=== PATIENT | male | born 1940 | race Caucasian/White ===

== ENCOUNTER 2016-09-20 03:06 | Outpatient (CLI) ==
[2016-09-20 09:53] VITALS: BMI 30.7
== END 2016-09-20 03:07 | disposition home or self-care (01) ==
LOC: AMBL 03:06
PROVIDERS: ATTEND Family Medicine
DX: R79.89 Other specified abnormal findings of blood chemistry (principal)

== ENCOUNTER 2016-09-20 03:20 | Inpatient (IN) | payer OTHER ==
[2016-09-20] MEDS ORDERED: SODIUM CHLORIDE 1,000 ML IV STA (03:21)
[2016-09-20 03:45] LABS: BASOPHILS # (AUTO) 0.1 K/uL (0-0.2); BASOPHILS % (AUTO) 0.7 % (0.0-3.0); EOSINOPHILS # (AUTO) 0.5 K/ul (0.0-0.7); EOSINOPHILS % (AUTO) 6.6 % (0.0-7.0); HEMATOCRIT 37.8 % (42.0-52.0); HEMOGLOBIN 12.1 g/dl (14.0-18.0); IMMATURE GRANULOCYTE % (AUTO) 0.3 % (0.0-5.0); LYMPHOCYTES # (AUTO) 2.1 K/uL (0.60-3.4); LYMPHOCYTES % (AUTO) 29.8 (10.0-50.0); MEAN CORPUSCULAR HEMOGLOBIN 30.7 pg (27.0-31.0); MEAN CORPUSCULAR VOLUME 95.9 fl (80.0-94.0); MONOCYTES # (AUTO) 0.5 K/uL (0.4-2.0); MONOCYTES % (AUTO) 6.9 (0-10); NEUTROPHILS % (AUTO) 55.7; PLATELET COUNT 177 10^3/uL (140-440); RED BLOOD COUNT 3.94 10^6/ul (4.70-6.10); WHITE BLOOD COUNT 7.14 K/ul (4.2-10.2)
[2016-09-20 04:06] LABS: PROTHROMBIN TIME 10.6 SEC (9.3-11.0)
[2016-09-20 04:27] LABS: BILIRUBIN,URINE Negative (NEGATIVE); KETONES,URINE Negative (NEGATIVE); LEUKOCYTE ESTERASE ,URINE 2+ (NEGATIVE); NITRITE,URINE Negative (NEGATIVE); PH,URINE 7.5 (5-9); PROTEIN,URINE Trace (NEGATIVE); URINE, BLOOD Negative (NEGATIVE)
[2016-09-20 04:29] LABS: ABG BASE EXCESS 1 (-2.0-2.0); ABG HCO3 24.9 (22.0-26.0); ABG PCO2 36.7 mmHg (35-45); ABG TCO2 26 (22.0-28.0)
[2016-09-20 04:39] LABS: ADD URINE MICROSCOPIC YES; BACTERIA,URINE 4+ (NOT PRESENT)
[2016-09-20 04:51] LABS: ALBUMIN 3.7 g/dL (3.4-5.0); ALBUMIN/GLOBULIN RATIO 1.16; ANION GAP 14.8; BILIRUBIN,TOTAL 0.46 mg/dL (0.00-1.20); BUN/CREATININE RATIO 44.66; CREATININE 1.5 mg/dL (0.60-1.10); POTASSIUM 3.8 mmol/L (3.5-5.1); TOTAL PROTEIN 6.9 g/dL (5.8-8.1)
--- NOTE | 2016-09-20 05:12 | ED.PDOC ---
General ED Provider: Dr. LAYA DENSON-ER Chief Complaint: Non-specific Complaint Stated Complaint: sent from the [facility] for abnormal labs--elevated bun/ creatinine Time Seen by Physician: 03:25 Mode of Arrival: Ambulance Information Source: Nurse Exam Limitations: No limitations Primary Care Provider: LUIS ANEGL KIM Nursing and Triage Documentation Reviewed and Agree: Yes Complaint Exam - Complaint/Exam Onset/Duration: unknown Symptoms Are: Still present Initial Severity: Mild Current Severity: Mild Location of Pain: Reports: None Character: Reports: Sharp Aggravating: Reports: None Alleviating: Reports: None Associated Signs and Symptoms: Denies: Diaphoresis, Back pain, Fever, Hematuria , Dysuria, Constipation, Blood in stool, Rectal pain, Appetite change, Nausea, Vomiting, Penile swelling, Penile discharge, Decreased urine output, Increased urine frequency, Increased thirst, Decreased activity, Lethargy, Scrotal pain, Scrotal swelling, Abdominal Pain Testicular Torsion Risk Factors: Reports: None Surgical Obstruction Risk Factors: Reports: None Abdominal Findings: Present: None Differential Diagnoses: Other Review of Systems - Review Of Systems Constitutional: Reports: No symptoms Eyes: Reports: No symptoms Ears, Nose, Mouth, Throat: Reports: No symptoms Respiratory: Reports: No symptoms Cardiac: Reports: No symptoms GI: Reports: No symptoms : Reports: No symptoms Musculoskeletal: Reports: No symptoms Skin: Reports: No symptoms Neurological: Reports: No symptoms Endocrine: Reports: No symptoms Hematologic/Lymphatic: Reports: No symptoms All Other Systems: Reviewed and Negative Past Medical History - Past Medical History Endocrine: Reports: Dyslipidemia Cardiovascular: Reports: Hypertension Respiratory: Reports: None Hematological: Reports: None Gastrointestinal: Reports: None Genitourinary: Reports: None Neuro/Psych: Reports: TIA, CVA, Seizure, Depression Musculoskeletal: Reports: None Cancer: Reports: Other (skin cancer,stomach cancer) Other Pertinent Past Medical History: 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 - Surgical History General Surgical History: Reports: Cholecystectomy, Other (AAA, left lobectomy( fungal)) - Family History Family History: Reports: Unknown - Social History Smoking Status: Smoker current status unknown Hx Substance Use: No Alcohol Screening: None Lives: With family - Immunizations Tetanus Shot up to Date: (UNKNOWN) Physical Exam - Physical Exam Appearance: Well-appearing, No pain distress, Well-nourished Eyes: TUAN, EOMI, Conjunctiva clear ENT: Ears normal, Nose normal, Oropharynx normal Neck: Supple Respiratory: Airway patent, Breath sounds clear, Breath sounds equal, Respirations nonlabored Cardiovascular: RRR GI/: Soft, Nontender, No masses, Bowel sounds normal, No Organomegaly Musculoskeletal: Normal strength, ROM intact, No edema, No calf tenderness Skin: Warm, Dry, Normal color Neurological: Sensation intact, Motor intact, Reflexes intact, Cranial nerves intact, Alert, Oriented Psychiatric: Affect appropriate, Mood appropriate Interpretation - Radiology Interpretation Radiology Interpretation By: Radiologist Radiology Results: Negative Exam Interpreted: CT Scan Physician Notification - Case Discussed Physician Notified: dr kim Time of Notification: 04:00 (dr kim recommended admission) Critical Care Note - Critical Care Note Total Time (mins): 0 Course - Course Hematology/Chemistry: 09/20/16 03:35 09/20/16 04:15 Orders, Labs, Meds: Lab Review 09/20/16 09/20/16 09/20/16 03:21 03:35 03:40 WBC 7.14 RBC 3.94 L Hgb 12.1 L Hct 37.8 L MCV 95.9 H MCH 30.7 MCHC 32.0 RDW Coeff of Jaime 12.4 Plt Count 177 Immature Gran % (Auto) 0.3 Neut % (Auto) 55.7 Lymph % (Auto) 29.8 [place] % (Auto) 6.9 Eos % (Auto) 6.6 Baso % (Auto) 0.7 Immature Gran # (Auto) 0.0 Neut # 4.0 Lymph # 2.1 [place] # 0.5 Eos # 0.5 Baso # 0.1 PT 10.6 INR 1.03 Puncture Site Lb O2 Saturation 97.0 ABG pH 7.440 ABG pCO2 36.7 ABG pO2 89.0 ABG HCO3 24.9 ABG Total CO2 26 ABG Base Excess 1 Kurt Test + FiO2 % 21.0 Sodium Potassium Chloride Carbon Dioxide Anion Gap BUN Creatinine Estimated GFR (MDRD) BUN/Creatinine Ratio Glucose Calcium Total Bilirubin AST ALT Alkaline Phosphatase Total Protein Albumin Globulin Albumin/Globulin Ratio Urine Color Yellow Urine Clarity Clear Urine pH 7.5 Ur Specific [place] 1.015 Urine Protein Trace Urine Glucose (UA) Negative Urine Ketones Negative Urine Blood Negative Urine Nitrite Negative Urine Bilirubin Negative Urine Urobilinogen 0.2 Ur Leukocyte Esterase 2+ Urine Microscopic WBC 30-50 Ur Squamous Epith Cells Not present Urine Bacteria 4+ 09/20/16 04:15 WBC RBC Hgb Hct MCV MCH MCHC RDW Coeff of Jaime Plt Count Immature Gran % (Auto) Neut % (Auto) Lymph % (Auto) [place] % (Auto) Eos % (Auto) Baso % (Auto) Immature Gran # (Auto) Neut # Lymph # [place] # Eos # Baso # PT INR Puncture Site O2 Saturation ABG pH ABG pCO2 ABG pO2 ABG HCO3 ABG Total CO2 ABG Base Excess Kurt Test FiO2 % Sodium 142 Potassium 3.8 Chloride 109 H Carbon Dioxide 22 L Anion Gap 14.8 BUN 67 H* Creatinine 1.50 H Estimated GFR (MDRD) 46.00 BUN/Creatinine Ratio 44.66 Glucose 100 Calcium 9.0 Total Bilirubin 0.46 AST 15 ALT 16 Alkaline Phosphatase 75 Total Protein 6.9 Albumin 3.7 Globulin 3.2 Albumin/Globulin Ratio 1.16 Urine Color Urine Clarity Urine pH Ur Specific [place] Urine Protein Urine Glucose (UA) Urine Ketones Urine Blood Urine Nitrite Urine Bilirubin Urine Urobilinogen Ur Leukocyte Esterase Urine Microscopic WBC Ur Squamous Epith Cells Urine Bacteria Orders Category Date Time Status ABG DRAW REQUEST Stat CARDIO 09/20/16 03:21 Completed EKG-(ED ONLY) Stat CARDIO 09/20/16 03:21 Completed Bladder Scan [ED BLADDER SCAN] .ONCE EMERGENCY 09/20/16 03:22 Active ED IV/MEDIPORT/POWERPORT .ONCE EMERGENCY 09/20/16 03:21 Active ABG Stat LAB 09/20/16 03:21 Completed CBC W/ AUTO DIFF Stat LAB 09/20/16 03:35 Completed COMPREHENSIVE METABOLIC PANEL Stat LAB 09/20/16 04:15 Completed PT WITH INR Stat LAB 09/20/16 03:35 Completed URINALYSIS C & S IF INDICATED Stat LAB 09/20/16 03:40 Completed URINE CULTURE Stat LAB 09/20/16 03:40 Received 0.9 % Sodium Chloride [Saline Flush] MEDS 09/20/16 03:21 Ordered 1 syr IVF PRN PRN Lidocaine HCl/Pf [Lidocaine 1 % Amp 5 ml (Sutures)] MEDS 09/20/16 05:18 Discontinued 5 ml .ROUTE .STK-MED ONE Sodium Chloride 0.9% [Sodium Chloride] 1,000 ml MEDS 09/20/16 03:21 Active IV 100 mls/hr CT ABDOMEN/PELVIS WO CONTRAST Stat RADS 09/20/16 03:22 Completed Medications Generic Name Dose Route Start Last Admin Trade Name Freq PRN Reason Stop Dose Admin Sodium Chloride 1,000 mls @ 100 mls/hr 09/20/16 03:21 Sodium Chloride IV 09/20/16 13:20 .Q10H STA Sodium Chloride 1 syr 09/20/16 03:21 Saline Flush IVF PRN PRN To flush IV Vital Signs: Temp Pulse Resp BP Pulse Ox 09/20/16 03:24 97.8 F 70 20 158/87 H 96 Departure - Departure Time of Disposition: 05:43 Disposition: ADMITTED INPATIENT Discharge Problem: Volume depletion Urinary tract infection Qualifiers: Urinary tract infection type: site unspecified Hematuria presence: without hematuria Qualifier Code: (N39.0) Urinary tract infection, site not specified Instructions: Urinary Tract Infection in Men (ED) Condition: Stable Pt referred to PMD for follow-up: Yes Allergies/Adverse Reactions: Allergies No Known Allergies Allergy (Verified 09/20/16 04:14) Home Medications: Ambulatory Orders Escitalopram Oxalate 5 mg PO DAILY 02/03/14 Phenobarbital 32.4 gr PO DAILY 02/03/14 Docusate Sodium [Colace] 100 mg PO BEDTIME 06/08/14 Hydrocodone Bit/Acetaminophen [Rarden 10-325] 10 - 325 tab PO Q8H PRN 06/08/14 Lorazepam [Ativan] 0.5 mg PO BID 09/23/14 Ammonium Lactate [Lac-Hydrin Five] 226 gm TP BID 12/31/14 Ferrous Sulfate 325 mg PO BID 12/31/14 Clopidogrel Bisulfate [Plavix] 75 mg PO DAILY #30 tablet 01/01/15 Amlodipine Besylate [Norvasc] 10 mg PO DAILY 08/29/15 Clonidine 0.2 mg [Catapres-Tts 2] 1 patch TD WEEKLY 08/29/15 Metoprolol Succinate [Toprol Xl] 100 mg PO DAILY 08/29/15 Phenytoin Cap [Dilantin] 100 mg PO TID 08/29/15 Acetaminophen [Tylenol Extra Strength] 1,000 mg PO BID 03/25/16 Calcium Carbonate/Vitamin D3 [Oyster Shell Calcium-Vit D Tab] 1 each PO BID 06/09 Hydralazine HCl 50 mg PO TID #90 tablet 03/28/16 Losartan/Hydrochlorothiazide [Hyzaar 100-12.5 Tablet] 1 each PO DAILY #30 tablet 03/28/16 Disposition Discussed With: Patient
[2016-09-20] MEDS ORDERED: LIDOCAINE 1 % AMP 5 ML (SUTURES) ONE (05:18)
--- NOTE | 2016-09-20 05:33 | CT ---
EXAM: CT abdomen pelvis without intravenous contrast 09/20/2016. Sagittal and coronal reformatted images obtained HISTORY: Elevated BUN and creatinine. Question obstruction COMPARISON: 08/29/2015 FINDINGS: Bibasilar atelectasis and/or pneumonia The liver shows no acute abnormality. Gallbladder has been removed. The adrenal glands and kidneys show no acute process. There is no urinary obstruction Anatomic detail degraded by motion artifact. The spleen and pancreas show no acute process. There is no evidence of bowel obstruction. Unremarkable urinary bladder. No free air or free fluid. Atherosclerotic vascular disease. Normal appendix. Aortoiliac stent graft is present. The aneurysm sac appears similar to the prior study. This measu res up to a maximum of approximately 5.2 cm diameter. IMPRESSION: 1. Bibasilar atelectasis and/or pneumonia. 2. Cholecystectomy. 3. No urinary or bowel obstruction and normal appendix. 4. Atherosclerotic vascular disease. 5. Aortoiliac stent graft with stable aneurysm sac.
--- NOTE | 2016-09-20 06:27 | ED.PDOC ---
Procedures - IV/Art Line Insertion Location: Rt upper arm Type of Line: Peripheral IV Invasive Line/IV Catheter Gauge: 24 Number of Attempts: 1 Blood Return Positive: Yes Invasive Line/IV Flushes Without Difficulty: Yes Conscious Sedation - Pre-op Assessment Weight: 220 lb Surgical History: Gallbladder removed, Left lobectomy - Medical History Past Medical History: Hypertension, Cancer, High Lipids, CVA, Seizures, Depression, Arthritis Other History: HEMIPLEGIA AND HEIPARESIS,APHASIA
[2016-09-20 07:16] LABS: BASOPHILS # (AUTO) 0.1 K/uL (0-0.2); BASOPHILS % (AUTO) 0.7 % (0.0-3.0); EOSINOPHILS # (AUTO) 0.5 K/ul (0.0-0.7); EOSINOPHILS % (AUTO) 6.7 % (0.0-7.0); HEMATOCRIT 38.3 % (42.0-52.0); HEMOGLOBIN 12.7 g/dl (14.0-18.0); IMMATURE GRANULOCYTE % (AUTO) 0.4 % (0.0-5.0); LYMPHOCYTES # (AUTO) 2.1 K/uL (0.60-3.4); LYMPHOCYTES % (AUTO) 26.9 (10.0-50.0); MEAN CORPUSCULAR HEMOGLOBIN 30.7 pg (27.0-31.0); MEAN CORPUSCULAR HGB CONC 33.2 (31.8-35.4); MEAN CORPUSCULAR VOLUME 92.5 fl (80.0-94.0); MONOCYTES # (AUTO) 0.6 K/uL (0.4-2.0); MONOCYTES % (AUTO) 7.6 (0-10); NEUTROPHILS # (AUTO) 4.4 K/ul (2.0-6.9); NEUTROPHILS % (AUTO) 57.7; PLATELET COUNT 174 10^3/uL (140-440); RED BLOOD COUNT 4.14 10^6/ul (4.70-6.10); WHITE BLOOD COUNT 7.63 K/ul (4.2-10.2)
[2016-09-20 07:42] LABS: ALBUMIN 3.8 g/dL (3.4-5.0); ALBUMIN/GLOBULIN RATIO 1.15; ANION GAP 14.7; BILIRUBIN,TOTAL 0.55 mg/dL (0.00-1.20); CALCIUM 9.2 mg/dL (8.2-10.2); CREATININE 1.51 mg/dL (0.60-1.10); POTASSIUM 3.7 mmol/L (3.5-5.1); TOTAL PROTEIN 7.1 g/dL (5.8-8.1)
[2016-09-20] MEDS ORDERED: CATAPRES-TTS 2 TD SCH (09:00)
[2016-09-20] MEDS ORDERED: NON-FORMULARY MEDICATION (Ferrous Sulfate [Ferrous Sulfate] 325 MG) PO SCH ×22 (09:00)
[2016-09-20] MEDS ORDERED: PHENOBARBITAL PO SCH (09:00)
[2016-09-20] MEDS ORDERED: NON-FORMULARY MEDICATION (Metoprolol Succinate [Toprol Xl] 100 MG) PO SCH ×22 (09:00)
[2016-09-20] MEDS ORDERED: LOVENOX SUBCUT SCH (09:00)
[2016-09-20] MEDS ORDERED: NON-FORMULARY MEDICATION (Amlodipine Besylate [Norvasc] 10 MG) PO SCH ×22 (09:00)
[2016-09-20 09:03] LABS: BUN/CREATININE RATIO 43.7
[2016-09-20 09:53] VITALS: BMI 30.7
[2016-09-20] MEDS: AZACTAM 1 GM in SODIUM CHLORIDE 50 ML IV SCH ×2 (10:00→21:17)
[2016-09-20] MEDS: AMMONIUM LACTATE TP SCH ×2 (11:48→21:15)
[2016-09-20] MEDS: FERROUS SULFATE PO SCH ×2 (11:58→21:16)
[2016-09-20] MEDS: TOPROL XL PO SCH (11:58)
[2016-09-20] MEDS: LEXAPRO PO SCH (11:58)
[2016-09-20] MEDS: NORVASC PO SCH (11:58)
[2016-09-20] MEDS: PHENOBARBITAL PO SCH (11:59)
[2016-09-20] MEDS: COZAAR PO SCH (11:59)
[2016-09-20] MEDS: PLAVIX PO SCH (11:59)
[2016-09-20] MEDS: CALCIUM 500 + VIT D 200 MG TABLET PO SCH ×2 (11:59→21:16)
[2016-09-20] MEDS: LOVENOX SUBCUT SCH (12:01)
[2016-09-20] MEDS: APRESOLINE PO SCH ×3 (12:20→21:16)
[2016-09-20] MEDS: ATIVAN PO SCH ×2 (12:21→21:16)
[2016-09-20] MEDS: DILANTIN PO SCH ×3 (12:21→21:17)
[2016-09-20] MEDS: SODIUM CHLORIDE 1,000 ML IV SCH ×2 (12:22→21:17)
[2016-09-20] MEDS: NORCO 10-325 PO PRN (21:16)
[2016-09-20] MEDS: COLACE PO SCH (21:16)
[2016-09-21] MEDS: NORCO 10-325 PO PRN ×2 (05:32→20:24)
[2016-09-21 05:40] LABS: BASOPHILS # (AUTO) 0.1 K/uL (0-0.2); BASOPHILS % (AUTO) 0.6 % (0.0-3.0); EOSINOPHILS # (AUTO) 0.4 K/ul (0.0-0.7); HEMATOCRIT 38.3 % (42.0-52.0); HEMOGLOBIN 12.8 g/dl (14.0-18.0); IMMATURE GRANULOCYTE % (AUTO) 0.4 % (0.0-5.0); LYMPHOCYTES % (AUTO) 24.5 (10.0-50.0); MEAN CORPUSCULAR HEMOGLOBIN 30.9 pg (27.0-31.0); MEAN CORPUSCULAR HGB CONC 33.4 (31.8-35.4); MEAN CORPUSCULAR VOLUME 92.5 fl (80.0-94.0); MONOCYTES # (AUTO) 0.6 K/uL (0.4-2.0); MONOCYTES % (AUTO) 7.1 (0-10); NEUTROPHILS # (AUTO) 5.1 K/ul (2.0-6.9); NEUTROPHILS % (AUTO) 62.4; PLATELET COUNT 192 10^3/uL (140-440); RED BLOOD COUNT 4.14 10^6/ul (4.70-6.10); WHITE BLOOD COUNT 8.12 K/ul (4.2-10.2)
[2016-09-21 06:18] LABS: ALBUMIN 3.6 g/dL (3.4-5.0); ALBUMIN/GLOBULIN RATIO 1.09; ANION GAP 13.6; BILIRUBIN,TOTAL 0.68 mg/dL (0.00-1.20); BUN/CREATININE RATIO 35.24; CALCIUM 9.2 mg/dL (8.2-10.2); CREATININE 1.22 mg/dL (0.60-1.10); POTASSIUM 3.6 mmol/L (3.5-5.1); TOTAL PROTEIN 6.9 g/dL (5.8-8.1)
[2016-09-21] MEDS: AZACTAM 1 GM in SODIUM CHLORIDE 50 ML IV SCH ×2 (09:04→20:25)
[2016-09-21] MEDS: AMMONIUM LACTATE TP SCH ×2 (09:22→20:24)
[2016-09-21] MEDS: APRESOLINE PO SCH ×3 (09:23→20:24)
[2016-09-21] MEDS: COZAAR PO SCH (09:23)
[2016-09-21] MEDS: CALCIUM 500 + VIT D 200 MG TABLET PO SCH ×2 (09:23→20:24)
[2016-09-21] MEDS: DILANTIN PO SCH ×3 (09:23→20:24)
[2016-09-21] MEDS: NORVASC PO SCH (09:23)
[2016-09-21] MEDS: ATIVAN PO SCH ×2 (09:23→20:23)
[2016-09-21] MEDS: PLAVIX PO SCH (09:24)
[2016-09-21] MEDS: FERROUS SULFATE PO SCH ×2 (09:24→20:24)
[2016-09-21] MEDS: LEXAPRO PO SCH (09:24)
[2016-09-21] MEDS: LOVENOX SUBCUT SCH (09:25)
[2016-09-21] MEDS: TOPROL XL PO SCH (09:25)
[2016-09-21] MEDS: PHENOBARBITAL PO SCH (09:25)
[2016-09-21] MEDS: SODIUM CHLORIDE 1,000 ML IV SCH ×2 (11:40→22:50)
[2016-09-21] MEDS: COLACE PO SCH (20:24)
[2016-09-22 05:54] LABS: BASOPHILS % (AUTO) 0.5 % (0.0-3.0); EOSINOPHILS # (AUTO) 0.6 K/ul (0.0-0.7); HEMATOCRIT 37.6 % (42.0-52.0); HEMOGLOBIN 12.5 g/dl (14.0-18.0); IMMATURE GRANULOCYTE % (AUTO) 0.7 % (0.0-5.0); LYMPHOCYTES # (AUTO) 2.1 K/uL (0.60-3.4); LYMPHOCYTES % (AUTO) 23.6 (10.0-50.0); MEAN CORPUSCULAR HEMOGLOBIN 30.9 pg (27.0-31.0); MEAN CORPUSCULAR HGB CONC 33.2 (31.8-35.4); MEAN CORPUSCULAR VOLUME 92.8 fl (80.0-94.0); MONOCYTES # (AUTO) 0.7 K/uL (0.4-2.0); MONOCYTES % (AUTO) 8.3 (0-10); NEUTROPHILS # (AUTO) 5.2 K/ul (2.0-6.9); NEUTROPHILS % (AUTO) 59.9; PLATELET COUNT 188 10^3/uL (140-440); RED BLOOD COUNT 4.05 10^6/ul (4.70-6.10); WHITE BLOOD COUNT 8.72 K/ul (4.2-10.2)
[2016-09-22 06:24] LABS: ALBUMIN 3.6 g/dL (3.4-5.0); ALBUMIN/GLOBULIN RATIO 1.13; BILIRUBIN,TOTAL 0.67 mg/dL (0.00-1.20); CALCIUM 9.3 mg/dL (8.2-10.2); TOTAL PROTEIN 6.8 g/dL (5.8-8.1)
[2016-09-22 06:25] LABS: BUN/CREATININE RATIO 28.07; CREATININE 1.14 mg/dL (0.60-1.10)
[2016-09-22] MEDS: PLAVIX PO SCH (08:13)
[2016-09-22] MEDS: TOPROL XL PO SCH (08:13)
[2016-09-22] MEDS: NORVASC PO SCH (08:13)
[2016-09-22] MEDS: FERROUS SULFATE PO SCH ×2 (08:14→20:40)
[2016-09-22] MEDS: APRESOLINE PO SCH ×3 (08:14→20:39)
[2016-09-22] MEDS: PHENOBARBITAL PO SCH (08:14)
[2016-09-22] MEDS: CALCIUM 500 + VIT D 200 MG TABLET PO SCH ×2 (08:14→20:40)
[2016-09-22] MEDS: ATIVAN PO SCH ×2 (08:14→20:40)
[2016-09-22] MEDS: COZAAR PO SCH (08:14)
[2016-09-22] MEDS: LEXAPRO PO SCH (08:15)
[2016-09-22] MEDS: DILANTIN PO SCH ×3 (08:16→20:40)
[2016-09-22] MEDS: LOVENOX SUBCUT SCH (08:20)
[2016-09-22] MEDS: AZACTAM 1 GM in SODIUM CHLORIDE 50 ML IV SCH ×2 (08:21→20:40)
[2016-09-22] MEDS: AMMONIUM LACTATE TP SCH ×2 (08:21→20:39)
--- NOTE | 2016-09-22 10:08 | PCM.PROG ---
Attending Provider: ATTENDING PROVIDER: Dr. LUIS ANGEL MICHAEL DATE OF SERVICE: 09/22/16 SUBJECTIVE: This 76 year old WHITE/ M was hospitalized 09/20/16. The patient is admitted with dehydration, renal azotemia. Condition has improved. He is confused as usual but is alert. Kidney functions are better. REVIEW OF SYSTEMS: CONSTITUTIONAL: No night sweats. No fatigue, malaise, lethargy. No fever or chills. HEENT: Eyes: No visual changes. No eye pain. No eye discharge. ENT: No runny nose. No epistaxis. No sinus pain. No odynophagia. No congestion. RESPIRATORY: No cough, no congestion. No hemoptysis. CARDIOVASCULAR: No angina symptoms. No CHF symptoms. No atypical chest pain for CAD. No palpitations. No shortness of breath. GASTROINTESTINAL: No abdominal pain. No nausea or vomiting. No diarrhea or constipation. No hematemesis. No hematochezia. GENITOURINARY: No urgency. No frequency. No dysuria. No hematuria. No obstructive symptoms. No discharge. No pain. No significant abnormal bleeding. MUSCULOSKELETAL: No musculoskeletal pain; no joint swelling. NEUROLOGICAL: Sleepy, alert and confused. No headache. No neck pain. No syncope. No seizures. No dizziness. PSYCHIATRIC: Not anxious. No depression. No suicidal thoughts. No homicidal thoughts. SKIN: No rash. No lesions. No wounds. ENDOCRINE: No unexplained weight loss. No weight gain. HEMATOLOGIC/LYMPHATIC: No anemia. No purpura. No petechiae. No prolonged or excessive bleeding. No palpable lymph nodes. PHYSICAL EXAMINATION: GENERAL: The patient is sleepy, alert, confused lying in bed in no distress. VITAL SIGNS: Temperature 97.0 F, Pulse 66, Respiratory Rate 18, BP 182/83, Pulse Ox 95% HEENT: Head normocephalic, atraumatic. Eyes: Extraocular muscles are intact. Pupils are equal, round and reactive to light and accommodation. Ears: No lesions. Nose appeared normal. Throat: No exudate or erythema. NECK: Supple. No JVD, no carotid bruit. No lymphadenopathy or thyromegaly. LUNGS: Decreased breath sounds. Clear to auscultation. Percussion note normal. Chest symmetrical. HEART: S1, S2, no S3. No murmurs. No cyanosis or clubbing. No ascites. Pulses: Dorsalis pedis and posterior tibial pulses +1 to +2 both sides. ABDOMEN: Soft. Non-tender. Bowel sounds active. No CVA tenderness. No mass felt. EXTREMITIES: No edema. Full range of motion of all extremities, equal. NEUROLOGIC: No focal deficit. Cranial nerves II through XII are grossly intact. No headache, no double vision or headache. SKIN: Not dry. Intact. Turgor-normal. LYMPHATIC: No palpable lymph nodes/no lymphedema. MUSCULOSKELETAL: Normal joints with no swelling. Muscle tone is normal. LAB REVIEW: 09/22/16 04:50 09/22/16 04:50 09/22/16 04:50: WBC 8.72, RBC 4.05 L, Hgb 12.5 L, Hct 37.6 L, MCV 92.8, MCH 30.9 , MCHC 33.2, RDW Coeff of Jaime 12.4, Plt Count 188, Immature Gran % (Auto) 0.7, Neut % (Auto) 59.9, Lymph % (Auto) 23.6, [place] % (Auto) 8.3, Eos % (Auto) 7.0, Baso % (Auto) 0.5, Immature Gran # (Auto) 0.1, Neut # 5.2, Lymph # 2.1, [place] # 0.7, Eos # 0.6, Baso # 0.0, Sodium 144, Potassium 4.0, Chloride 112 H, Carbon Dioxide 23, Anion Gap 13.0, BUN 32 H, Creatinine 1.14 H, Estimated GFR (MDRD) 62.00, BUN/Creatinine Ratio 28.07, Glucose 95, Calcium 9.3, Total Bilirubin 0.67 , AST 18, ALT 18, Alkaline Phosphatase 91, Total Protein 6.8, Albumin 3.6, Globulin 3.2, Albumin/Globulin Ratio 1.13, Phenytoin 4.58 L ASSESSMENT: 1. Dehydration, resolved. 2. Renal azotemia, resolved. 3. UTI being treated with Azactam and now Levaquin. 4. Dementia. 5. History of CVA. PLAN: 1. Continue Levaquin 250 mg IV daily Plan and coordination of the patient's care discussed in the presence of Saw Boss and nurse. CONDITION: Stable SCRIBED BY: JUAN ANTONIO BAUGH Licensed Loan Officer scribed while in presence of service performed by Dr. LUIS ANGEL MICHAEL on 09/22/16 ([id number])
[2016-09-22] MEDS: LEVAQUIN 250 MG in PREMIX 50 ML D5W 1 BAG IV SCH (10:15)
[2016-09-22] MEDS: SODIUM CHLORIDE 1,000 ML IV SCH (13:15)
--- NOTE | 2016-09-22 13:47 | HP ---
DATE OF SERVICE: 09/20/16 REASON FOR HOSPITALIZATION: Renal Azotemia HISTORY OF PRESENT ILLNESS: The patient is a 76 year white male was seen in the longterm the day prior by the attending physician and he had ordered that lab work. In the middle of the night the stat lab came back after 12 hours. I was called and the nurse has no idea why the stat labs were ordered. The patient was sent out to the emergency room as creatinine was 1.5, BUN 67 and the previous creatinine and BUN were extremely low and in normal range, practically on the upper side. In any case the patient was seen and examined in the ER by ER attending. Creatinine 1.5, BUN 67. The patient's skin was somewhat dry. Skin turgor was poor. As usual the patient is demented. He has gained a lot of weight lately, last few years. The patient has multiple medical problems. REVIEW OF SYSTEMS: CONSTITUTIONAL: No night sweats. No fatigue, malaise, lethargy. No fever or chills. The patient doesn't seem to be in distress, he is quite and not answering any questions. He is alert but confused. HEENT: Eyes: No visual changes. No eye pain. No eye discharge. ENT: No runny nose. No epistaxis. No sinus pain. No sore throat. No odynophagia. No ear pain. No congestion. RESPIRATORY: No cough, no congestion. No hemoptysis. CARDIOVASCULAR: No angina symptoms. No CHF symptoms. No atypical chest pain for CAD. No palpitations. No shortness of breath. No PND. No orthopnea. GASTROINTESTINAL: No abdominal pain. No nausea or vomiting. No diarrhea or constipation. No hematemesis. No hematochezia. GENITOURINARY: No urgency. No frequency. No dysuria. No hematuria. No obstructive symptoms. No discharge. No pain. No significant abnormal bleeding. MUSCULOSKELETAL: No musculoskeletal pain. No joint swelling. No arthritis. NEUROLOGICAL: No headache. No neck pain. No syncope. No seizures. No dizziness. PSYCHIATRIC: Not anxious. No depression. No suicidal thoughts. No homicidal thoughts. SKIN: No rash. No lesions. No wounds. ENDOCRINE: No unexplained weight loss. No weight gain. HEMATOLOGIC/LYMPHATIC: No anemia. No purpura. No petechiae. No prolonged or excessive bleeding. No palpable lymph nodes. PERSONAL/FAMILY/SOCIAL HISTORY: The patient is and lives in the longterm. No alcohol use. Current smoker. 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 VITAL SIGNS: Temperature 97.8, pulse 70, respiratory rate 20, blood pressure 158/87 and pulse 96%. HEENT: Head normocephalic, atraumatic. Eyes: Extraocular muscles are intact. Pupils are equal, round and reactive to light and accommodation. Ears: No lesions. Nose appeared normal. Throat: No exudate or erythema. Mucosa Membrane dry. Face symmetrical. Sclera not icteric. NECK: Supple. No JVD, no carotid bruit. No lymphadenopathy or thyromegaly. LUNGS: Decreased breath sounds but Clear to auscultation. Percussion note normal. Chest symmetrical. HEART: PMI not palpable on auscultation. S1, S2, no S3. No murmurs. No cyanosis or clubbing. No ascites. Pulses: Dorsalis pedis and posterior tibial pulses +1 to +2 both sides. ABDOMEN: Soft. Nontender. Bowel sounds active. No CVA tenderness. No mass felt. EXTREMITIES: No edema. Full range of motion of all extremities, equal. Contractures of lower extremities noted. NEUROLOGIC: No focal deficit. Cranial nerves II through XII are grossly intact. No headache, no double vision or headache. SKIN: Dry. Intact. Turgor - normal. LYMPHATIC: No palpable lymph nodes/no lymphedema. MUSCULOSKELETAL: Normal joints with no swelling. Muscle tone is normal. LABS: Creatinine 1.5, BUN 67, potassium 3.8, U/A 2+ leukocyte esterase and 4+ bacteria. ABG pO 2 89, pCO2 36, pH 7.44 with 97% saturation. Hgb 12. hct 37, WBC 7,100 normal differential. It is to be noted that patient's U/A is abnormal but he is asymptomatic there is no need for treatment at present time. ASSESSMENT: 1. Renal azotemia with dehydration 2. Hypertension 3. CVA 4. TIA 5. Peripheral arterial disease 6. Cholecystectomy 7. Hypertension 8. Generalized osteoarthritis 9. Seizure disorder PLAN: 1. IV fluids 2. Monitor CBC and CMP 3. Telemetry 4. EKG 5. Monitor for fluid overload 6. Will do Dilantin and Phenobarbital level CONDITION: Stable. TIME SPENT: More than 70 minutes. MTDD
[2016-09-22] MEDS: NORCO 10-325 PO PRN (20:40)
[2016-09-22] MEDS: COLACE PO SCH (20:40)
[2016-09-22 23:14] VITALS: BP 195/93; TEMP 97.8
[2016-09-23] MEDS: SODIUM CHLORIDE 1,000 ML IV SCH (03:30)
[2016-09-23] MEDS: NORCO 10-325 PO PRN (04:53)
[2016-09-23] MEDS ORDERED: PHENOBARBITAL PO SCH (09:00)
[2016-09-23] MEDS ORDERED: CATAPRES-TTS 2 TD SCH (09:00)
[2016-09-23] MEDS: AZACTAM 1 GM in SODIUM CHLORIDE 50 ML IV SCH (09:03)
[2016-09-23] MEDS: LOVENOX SUBCUT SCH (09:09)
[2016-09-23] MEDS: COZAAR PO SCH (09:11)
[2016-09-23] MEDS: LEXAPRO PO SCH (09:11)
[2016-09-23] MEDS: APRESOLINE PO SCH ×2 (09:12→14:43)
[2016-09-23] MEDS: DILANTIN PO SCH ×2 (09:14→14:45)
[2016-09-23] MEDS: ATIVAN PO SCH (09:14)
[2016-09-23] MEDS: NORVASC PO SCH (09:14)
[2016-09-23] MEDS: TOPROL XL PO SCH (09:14)
[2016-09-23] MEDS: FERROUS SULFATE PO SCH (09:15)
[2016-09-23] MEDS: PLAVIX PO SCH (09:15)
[2016-09-23] MEDS: AMMONIUM LACTATE TP SCH (09:15)
[2016-09-23] MEDS: CALCIUM 500 + VIT D 200 MG TABLET PO SCH (09:15)
--- NOTE | 2016-09-23 10:03 | PCM.PROG ---
Attending Provider: ATTENDING PROVIDER: Dr. LUIS ANGEL MICHAEL DATE OF SERVICE: 09/23/16 SUBJECTIVE: This 76 year old WHITE/ M was hospitalized 09/20/16. The patient is hospitalized with dehydration and renal azotemia. The patient has UTI, E. coli , sensitive to Levaquin. Condition has improved. Kidney functions much better. Creatinine 1.1 with BUN of 32. The patient was agitated last night. REVIEW OF SYSTEMS: CONSTITUTIONAL: No night sweats. No fatigue, malaise, lethargy. No fever or chills. HEENT: Eyes: No visual changes. No eye pain. No eye discharge. ENT: No runny nose. No epistaxis. No sinus pain. No odynophagia. No congestion. RESPIRATORY: No cough, no congestion. No hemoptysis. CARDIOVASCULAR: No angina symptoms. No CHF symptoms. No atypical chest pain for CAD. No palpitations. No shortness of breath. GASTROINTESTINAL: No abdominal pain. No nausea or vomiting. No diarrhea or constipation. No hematemesis. No hematochezia. GENITOURINARY: No urgency. No frequency. No dysuria. No hematuria. No obstructive symptoms. No discharge. No pain. No significant abnormal bleeding. MUSCULOSKELETAL: No musculoskeletal pain; no joint swelling. NEUROLOGICAL: No headache. No neck pain. No syncope. No seizures. No dizziness. PSYCHIATRIC: Not anxious. No depression. No suicidal thoughts. No homicidal thoughts. SKIN: No rash. No lesions. No wounds. ENDOCRINE: No unexplained weight loss. No weight gain. HEMATOLOGIC/LYMPHATIC: No anemia. No purpura. No petechiae. No prolonged or excessive bleeding. No palpable lymph nodes. PHYSICAL EXAMINATION: GENERAL: The patient is alert but confused lying in bed in no distress. VITAL SIGNS: Temperature 97.8 F, Pulse 70, Respiratory Rate 24, BP 195/93, Pulse Ox 96% HEENT: Head normocephalic, atraumatic. Eyes: Extraocular muscles are intact. Pupils are equal, round and reactive to light and accommodation. Ears: No lesions. Nose appeared normal. Throat: No exudate or erythema. NECK: Supple. No JVD, no carotid bruit. No lymphadenopathy or thyromegaly. LUNGS: Decreased breath sounds. Clear to auscultation. Percussion note normal. Chest symmetrical. HEART: S1, S2, no S3. No murmurs. No cyanosis or clubbing. No ascites. Pulses: Dorsalis pedis and posterior tibial pulses +1 to +2 both sides. ABDOMEN: Soft. Non-tender. Bowel sounds active. No CVA tenderness. No mass felt. EXTREMITIES: No edema. Full range of motion of all extremities, equal. NEUROLOGIC: No focal deficit. Cranial nerves II through XII are grossly intact. No headache, no double vision or headache. SKIN: Not dry. Intact. Turgor-normal. LYMPHATIC: No palpable lymph nodes/no lymphedema. MUSCULOSKELETAL: Normal joints with no swelling. Muscle tone is normal. LAB REVIEW: 09/22/16 04:50 09/22/16 04:50 ASSESSMENT: 1. UTI resolving 2. Renal azotemia resolved 3. Hypertension PLAN: Hydralazine is increased to 75 t.i.d. Blood pressure is still high, will continue to monitor blood pressure so we may have to work with medication changes. Dilantin level is normal. Plan and coordination of the patient's care discussed in the presence of Buzzle Buffer and nurse. CONDITION: Stable SCRIBED BY: JUAN ANTONIO BAUGH Instrumentation Technologist scribed while in presence of service performed by Dr. LUIS ANGEL MICHAEL on 09/23/16 ([id number])
[2016-09-23] MEDS: LEVAQUIN 250 MG in PREMIX 50 ML D5W 1 BAG IV SCH (10:09)
--- NOTE | 2016-09-23 12:30 | CM.DICTOOL ---
ADMISSION: 09/20/16 05:58 DISCHARGE: September 23, 2016 DATE OF SERVICE: 09/23/16 FINAL DIAGNOSIS Renal Azotemia Dehydration UTI, enterobacter cloacae complex Hypertension CVA with Left Hemiparesis and Aphasia Peripheral Arterial Disease Seizure Disorder Dementia Anemia BPH Basal Cell Carcinoma, 1988 Left Lung Lobectomy, fungal infection 1988 Cholecystectomy Generalized Osteoarthritis Aortoiliac Stent Graft LAST VITALS Temp Pulse Resp BP Pulse Ox 97.8 F 70 24 195/93 H 96 09/22/16 22:00 09/22/16 22:00 09/22/16 22:00 09/22/16 22:00 09/22/16 22:00 ACTIVE HOME MEDICATIONS Acetaminophen/Hydrocodone Bitart ([place] 10-325) 1 tab PO Q8H PRN PRN Reason: MODERATE PAIN Last Admin: 09/23/16 04:53 Dose: 1 tab Amlodipine Besylate (Norvasc) 10 mg PO DAILY [facility] Last Admin: 09/23/16 09:14 Dose: 10 mg Calcium/Vitamin D (Calcium 500 + Vit D 200 Mg Tablet) 1 each PO BID [facility] Last Admin: 09/23/16 09:15 Dose: 1 each Clonidine HCl (Catapres-Tts 2) 1 patch TD WEEKLY [facility] Last Admin: 09/23/16 09:07 Dose: 1 patch Clopidogrel Bisulfate (Plavix) 75 mg PO DAILY [facility] Last Admin: 09/23/16 09:15 Dose: 75 mg Docusate Sodium (Colace) 100 mg PO BEDTIME [facility] Last Admin: 09/22/16 20:40 Dose: 100 mg Escitalopram Oxalate (Lexapro) 5 mg PO DAILY [facility] Last Admin: 09/23/16 09:11 Dose: 5 mg Ferrous Sulfate (Ferrous Sulfate) 324 mg PO BID [facility] Last Admin: 09/23/16 09:15 Dose: 324 mg Hydralazine HCl (Apresoline) 75 mg PO TID [facility] Last Admin: 09/23/16 09:12 Dose: 75 mg Lorazepam (Ativan) 0.5 mg PO BID [facility] Last Admin: 09/23/16 09:14 Dose: 0.5 mg Losartan Potassium (Cozaar) 100 mg PO DAILY [facility] Last Admin: 09/23/16 09:11 Dose: 100 mg Metoprolol Succinate (Toprol Xl) 100 mg PO DAILY [facility] Last Admin: 09/23/16 09:14 Dose: 100 mg Non-Formulary Medication (Ammonium Lactate [Lac-Hydrin Five]) 226 gm TP BID [facility] Last Admin: 09/23/16 09:15 Dose: Not Given Phenobarbital (Phenobarbital) 32.4 mg PO DAILY [facility] Last Admin: 09/23/16 09:23 Dose: 32.4 mg Phenytoin Sodium (Dilantin) 100 mg PO TID [facility] Last Admin: 09/23/16 09:14 Dose: 100 mg ALLERGIES No Known Allergies Allergy (Verified 09/20/16 04:14) NEW PRESCRIPTIONS: Levaquin 500 mg daily for 5 days. Start tomorrow. SMOKING: No smoking DISEASE SPECIFIC EDUCATION: Not Applicable LAB REVIEW: 09/22/16 04:50 09/22/16 04:50 09/22/16 04:50: Phenobarbital 6 PLAN: Discharge to [facility] Diet: Heart Healthy. Encourage liquids Dietitian to consult for optimal nutrtional intakes Activity: up to chair 1-2 times daily Turn every 2 hours Incontinent care every 2 hours and prn Decubitus precautions Vital Signs daily for one week then weekly CBC, CMP in one week, then monthly Dilantin and Phenobarb levels every [address] Hawley to see on longterm rounds in 7-10 days. Mr. Mathur is alert to person. He has left hemiparesis and aphasia from a previous CVA. He is dependent on the nursing staff for bathing, repositioning and transfers. He requires assistance of 2-3 staff members for transfers. He is incontinent of urine and stool. His color is pale. Skin is dry and flaky from the face to the feet. A skin tear is noted to the right elbow. Meal intakes have been fair with intakes of 10-75% noted. The liquid intake has been good. Chapo De La Fuente MD
--- NOTE | 2016-09-25 10:43 | DS ---
DATE OF SERVICE: 09/23/16 FINAL DIAGNOSIS: 1. Renal Azotemia 2. Dehydration 3. UTI, enterobacter cloacae complex 4. Hypertension 5. CVA with Left Hemiparesis and Aphasia 6. Peripheral arterial disease 7. Seizure disorder 8. Dementia 9. Anemia 10.BPH 11.Basal Cell carcinoma, 1988 12.Left lung lobectomy, fungal infection 1988 13.Cholecystectomy 14.Generalized osteoarthritis 15.Aortoiliac Stent Graft LAST VITALS: Temperature 98.8, pulse 70, respiratory rate 24, blood pressure 195/93 and pulse ox 96%. DISCHARGE INSTRUCTIONS: Discharge to [facility]. Vital signs daily for one week then weekly. CBC, CMP in one week then monthly. Dilantin and Phenobarb levels every [address] Hawley to see on [facility]iary rounds in 7-10 dyas. MEDICATIONS AT DISCHARGE: [place] 10-325mg PO Q 8 hour PRN Norvasc 10mg PO daily Calcium 500+Vit D200mg one tach PO twice a day Catapres-Tts 2 one patch TD weekly Plavix 75mg PO daily Colace 100mg PO bedtime Lexapro 5mg PO daily Ferrous Sulfate 324mg PO twice a day Apresoline 75mg PO three times a day Ativan 0.5mg PO twice a day Cozaar 100mg Po daily Toprol XL 100mg PO daily Lac-Hydrin Five 226gram TP twice a day Phenobarbital 32.4mg Po daily Dilantin 100mg PO three times a day ALLERGIES: No known allergies allergies. NEW PRESCRIPTIONS: Levaquin 500mg daily for five days start tomorrow DIET INSTRUCTIONS: Heart Healthy. Encourage liquids. Dietitian to consult for optimal nutritional intakes ACTIVITY: Up to chair 1-2 times daily. Turn every two hours. Incontinent care every 2 hours and PRN. Decubitus precautions. SMOKING: No smoking DISEASE SPECIFIC EDUCATION: N/A HOSPITAL COURSE: The patient is a 76 year old white male was hospitalized with dehydrated, dementia, renal azotemia and the patient was also noted to have urinary tract infection, e-coli. The patient has been treated with Azactam, Levaquin. At the time of discharge he was put on Levaquin. Also the patient was given slow IV fluids. He was watched for fluid overload which he didn't have at the time of discharge. The patient's creatinine is 1.1, bun 32. The patient's BUN was more than 60 with creatinine 1.5 or more. The patient's condition at the time of discharge stable. His appetite has definitely has improved. His hydration status improved. His skin turgor also improved. TIME SPENT: More than 60 minutes. MTDD
--- NOTE | 2016-09-25 10:44 | PN ---
09/20/16: Level 5 09/21/16: Intermediate 09/22/16: Intermediate 09/23/16: D as in discharge MTDD
--- NOTE | 2016-10-01 15:50 | PN ---
DATE OF SERVICE: 09/21/16 SUBJECTIVE:. The patient is a 76 year old white male hospitalized with dehydration, renal azotemia. The patient's condition has steadily improved. His mental status seems to have improved and he is more alert, still confused and appetite seems to have improved. REVIEW OF SYSTEMS: CONSTITUTIONAL: No night sweats. No fatigue, malaise, lethargy. No fever or chills. HEENT: Eyes: No visual changes. No eye pain. No eye discharge. ENT: No runny nose. No epistaxis. No sinus pain. No sore throat. No odynophagia. No congestion. RESPIRATORY: No cough, no congestion. No hemoptysis. CARDIOVASCULAR: No angina symptoms. No CHF symptoms. No atypical chest pain for CAD. No palpitations. No shortness of breath. GASTROINTESTINAL: No abdominal pain. No nausea or vomiting. No diarrhea or constipation. No hematemesis. No hematochezia. GENITOURINARY: No urgency. No frequency. No dysuria. No hematuria. No obstructive symptoms. No discharge. No pain. No significant abnormal bleeding. MUSCULOSKELETAL: No musculoskeletal pain; no joint swelling. NEUROLOGICAL: No headache. No neck pain. No syncope. No seizures. No dizziness. PSYCHIATRIC: Not anxious. No depression. No suicidal thoughts. No homicidal thoughts. SKIN: No rash. No lesions. No wounds. ENDOCRINE: No unexplained weight loss. No weight gain. HEMATOLOGIC/LYMPHATIC: No anemia. No purpura. No petechiae. No prolonged or excessive bleeding. No palpable lymph nodes. PHYSICAL EXAMINATION: GENERAL: The patient is confused and alert. VITAL SIGNS: Temperature 98, pulse 64, respiratory rate 20, blood pressure 190 /89 and pulse ox 96%. HEENT: Head normocephalic, atraumatic. Eyes: Extraocular muscles are intact. Pupils are equal, round and reactive to light and accommodation. Ears: No lesions. Nose appeared normal. Throat: No exudate or erythema. NECK: Supple. No JVD, no carotid bruit. No lymphadenopathy or thyromegaly. LUNGS: Decreased breath sounds but clear to auscultation. Percussion note normal. Chest symmetrical. HEART: S1, S2, no S3. No murmurs. No cyanosis or clubbing. No ascites. Pulses: Dorsalis pedis and posterior tibial pulses +1 to +2 both sides. ABDOMEN: Soft. Nontender. Bowel sounds active. No CVA tenderness. No mass felt. EXTREMITIES: No edema. Full range of motion of all extremities, equal. NEUROLOGIC: No focal deficit. Cranial nerves II through XII are grossly intact. No headache, no double vision or headache. SKIN: Not dry. Intact. Turgor - normal. He looks somewhat pale but that is his appearance. LYMPHATIC: No palpable lymph nodes/no lymphedema. MUSCULOSKELETAL: Normal joints with no swelling. Muscle tone is normal. LABS: Hgb 12.8, hct 38, WBC 8,100 normal differential, creatinine 1.2, BUN 43, potassium 3.6. ASSESSMENT: 1. Renal azotemia with dehydration 2. Hypertension 3. CVA 4. TIA 5. Peripheral arterial disease 6. Cholecystectomy 7. Hypertension 8. Generalized osteoarthritis 9. Seizure disorder PLAN: 1. Will do Dilantin and Phenobarb level 2. Increase the Hydralazine to 75mg three times a day because of hypertension which seems to be persistent. CONDITION: Stable TIME SPENT: More than 30 minutes. Plan and coordination of the patient's care discussed in the presence of nurse. MARLY
== END 2016-09-23 15:49 | DRG 948 ==
LOC: ED 03:20 → MEDSURG A 05:58
PROVIDERS: ADMIT Internal Medicine; ATTEND Internal Medicine
DX: R79.89 Other specified abnormal findings of blood chemistry (principal); N39.0 Urinary tract infection, site not specified; I69.354 Hemiplegia and hemiparesis following cerebral infarction affecting left non-dominant side; E86.9 Volume depletion, unspecified; B96.89 Other specified bacterial agents as the cause of diseases classified elsewhere; I10 Essential (primary) hypertension; R41.0 Disorientation, unspecified; I69.320 Aphasia following cerebral infarction; I73.9 Peripheral vascular disease, unspecified; G40.909 Epilepsy, unspecified, not intractable, without status epilepticus; F03.90 Unspecified dementia, unspecified severity, without behavioral disturbance, psychotic disturbance, mood disturbance, and anxiety; D64.9 Anemia, unspecified; N40.0 Benign prostatic hyperplasia without lower urinary tract symptoms; Z16.11 Resistance to penicillins; Z79.02 Long term (current) use of antithrombotics/antiplatelets; Z79.899 Other long term (current) drug therapy
CPT/HCPCS: 36415; 80053; 80184; 80185; 81001; 82803; 85025; 85610; 87086; 87186; 93005; 93010; 96360; 96361; 99284

== ENCOUNTER 2018-08-02 17:48 | Inpatient (IN) ==
--- NOTE | 2018-08-02 18:39 | ED.PDOC ---
General ED Provider: Dr. MAGDALENA COELHO Chief Complaint: Abnormal Labs Stated Complaint: ABNORMAL OUT PT LABS MAINLY DECLINE IN RENAL FUNCTION. PT DENIED BUN 77 AND CARE ADMINISTRATIVE TECH OF 3.6. Time Seen by Physician: 18:00 Mode of Arrival: Ambulance Information Source: Patient, Snf Exam Limitations: No limitations Primary Care Provider: LUIS ANGEL MICHAEL Nursing and Triage Documentation Reviewed and Agree: Yes Does patient meet sepsis criteria?: No System Inflammatory Response Syndrome: Not Applicable Sepsis Protocol: For patient's 13 years and over: Temp is 96.8 and below OR 101 and greater Pulse >90 BPM Resp >20/minute Acutely Altered Mental Status Are patient's symptoms suggestive of a new infection, such as: -Pneumonia -Skin, Soft Tissue -Endocarditis -UTI -Bone, Joint Infection -Implantable Device -Acute Abdominal Infection -Wound Infection -Meningitis -Blood Stream Catheter Infection -Unknown Miscellaneous Complaint Exam - Complex/Multi-System Complaint/Exam Onset/Duration: ABNORMAL RENAL FUNCTION Symptoms Are: Still present Location of Pain: ABDOMEN MILD Pain Radiates to: NO Character: DULL Aggravating: NONE Associated Signs and Symptoms: Reports: Abdominal pain. Denies: Decreased responsiveness, Confusion, Agitation, Dizziness, Weakness, Syncope, Headache, Short of air, Cough, Wheezing, Hemoptysis, Chest pain, Palpitations, Edema, Nausea, Vomiting, Diarrhea, Back pain, Dysuria, Hematemesis, Melena, Decreased oral intake, Fever, Diaphoresis, Immunocompromised, Anticoagulation Therapy, Recent medication changes, Indwelling paramedical aide, Prior MRSA, Prior VRE, Recent trauma, Remote trauma Recent Echo/LV Function: No Respiratory Distress: None JVD Present: No Tachypnea Present: No Stridor Present: No Abdominal Findings: Present: Normal findings Glascow Coma Scale (see protocol): 15 Focal Weakness: Present: None Focal Sensory Loss: Present: None Gait: Unable Gag Reflex Present: Yes Babinski Sign: Negative Right, Negative Left Skin Findings: Present: Normal findings Joint Swelling Present: No In-Dwelling Device Present: No Review of Systems - Review Of Systems Constitutional: Reports: No symptoms Eyes: Reports: No symptoms Ears, Nose, Mouth, Throat: Reports: No symptoms Respiratory: Reports: No symptoms Cardiac: Reports: No symptoms GI: Reports: Abdominal pain : Reports: No symptoms Musculoskeletal: Reports: No symptoms Skin: Reports: No symptoms Neurological: Reports: No symptoms Endocrine: Reports: No symptoms Hematologic/Lymphatic: Reports: No symptoms All Other Systems: Reviewed and Negative Past Medical History - Past Medical History Endocrine: Reports: Dyslipidemia Cardiovascular: Reports: Hypertension Respiratory: Reports: None Hematological: Reports: None Gastrointestinal: Reports: None Genitourinary: Reports: None Neuro/Psych: Reports: TIA, CVA, Seizure, Depression Musculoskeletal: Reports: None Cancer: Reports: Other (skin cancer,stomach cancer) Other Pertinent Past Medical History: 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 - Surgical History General Surgical History: Reports: Cholecystectomy, Other (AAA, left lobectomy( fungal)) - Family History Family History: Reports: Unknown - Social History Smoking Status: Current every day smoker, Smoker current status unknown Hx Substance Use: No Alcohol Screening: None Physical Exam - Physical Exam Appearance: Well-appearing, No pain distress, Well-nourished Eyes: TUAN, EOMI, Conjunctiva clear ENT: Dry mucosa Respiratory: Airway patent, Breath sounds clear, Breath sounds equal, Respirations nonlabored Cardiovascular: RRR, Pulses normal, No rub, No murmur GI/: Soft, Nontender, No masses, Bowel sounds normal, No Organomegaly Musculoskeletal: Normal strength, ROM intact, No edema, No calf tenderness Skin: Warm, Dry, Normal color Neurological: Sensation intact, Motor intact, Reflexes intact, Cranial nerves intact, Alert, Oriented Psychiatric: Affect appropriate, Mood appropriate Re-Evaluation - Re-Evaluation Time of Re-Evaluation: 19:41 (LABS AT [facility] DOES NOT SUPPORT RENAL FAILURE ) Status: Improved Vital Signs Stable: Yes Pain Level: 0 Appearance: NAD Lungs: Clear Skin: Warm and Dry Neuro: Alert and Oriented X3 CV: RRR Physician Notification - Case Discussed Physician Notified: PMD Time of Notification: 19:42 ([facility] OBS REPEAT LABS ) Admit To: Observation Critical Care Note - Critical Care Note Total Time (mins): 0 Course - Course Hematology/Chemistry: 08/02/18 18:52 08/02/18 18:52 Orders, Labs, Meds: Lab Review 08/02/18 08/02/18 08/02/18 18:41 18:52 18:52 WBC 11.91 H RBC 4.39 L Hgb 12.8 L Hct 39.5 L MCV 90.0 MCH 29.2 MCHC 32.4 RDW Coeff of Jaime 13.7 Plt Count 198 Immature Gran % (Auto) 0.3 Neut % (Auto) 78.8 Lymph % (Auto) 11.1 Evangeline % (Auto) 6.0 Eos % (Auto) 3.6 Baso % (Auto) 0.2 Immature Gran # (Auto) 0.0 Neut # (Auto) 9.4 H Lymph # (Auto) 1.3 Evangeline # (Auto) 0.7 Eos # (Auto) 0.4 Baso # (Auto) 0.0 PT 9.9 INR 0.99 APTT 27.1 Sodium Potassium Chloride Carbon Dioxide Anion Gap BUN Creatinine Estimated GFR (MDRD) BUN/Creatinine Ratio Glucose Calcium Total Bilirubin AST ALT Alkaline Phosphatase Total Creatine Kinase Troponin I Total Protein Albumin Globulin Albumin/Globulin Ratio Urine Color Yellow Urine Clarity Cloudy Urine pH 8.0 Ur Specific [place] 1.020 Urine Protein 1+ Urine Glucose (UA) Negative Urine Ketones Negative Urine Blood Negative Urine Nitrite Positive Urine Bilirubin Negative Urine Urobilinogen 0.2 Ur Leukocyte Esterase 1+ Urine Microscopic WBC 10-20 Ur Squamous Epith Cells Not present Urine Bacteria 4+ 08/02/18 18:52 WBC RBC Hgb Hct MCV MCH MCHC RDW Coeff of Jaime Plt Count Immature Gran % (Auto) Neut % (Auto) Lymph % (Auto) Evangeline % (Auto) Eos % (Auto) Baso % (Auto) Immature Gran # (Auto) Neut # (Auto) Lymph # (Auto) Evangeline # (Auto) Eos # (Auto) Baso # (Auto) PT INR APTT Sodium 141.1 Potassium 3.93 Chloride 104.8 Carbon Dioxide 27.3 Anion Gap 12.93 BUN 26.5 H Creatinine 0.94 Estimated GFR (MDRD) 78.00 BUN/Creatinine Ratio 28.19 Glucose 102.9 Calcium 9.62 Total Bilirubin 0.63 AST 40.8 ALT 17.0 Alkaline Phosphatase 122.2 H Total Creatine Kinase 33.7 L Troponin I < 0.012 Total Protein 7.96 Albumin 4.42 Globulin 3.54 Albumin/Globulin Ratio 1.24 Urine Color Urine Clarity Urine pH Ur Specific [place] Urine Protein Urine Glucose (UA) Urine Ketones Urine Blood Urine Nitrite Urine Bilirubin Urine Urobilinogen Ur Leukocyte Esterase Urine Microscopic WBC Ur Squamous Epith Cells Urine Bacteria Orders Category Date Time Status EKG-(ED ONLY) Stat CARDIO 08/02/18 18:14 Completed CBC W/ AUTO DIFF Stat LAB 08/02/18 18:52 Completed COMPREHENSIVE METABOLIC PANEL Stat LAB 08/02/18 18:52 Completed CREATINE KINASE Stat LAB 08/02/18 18:52 Completed PARTIAL THROMBOPLASTIN TIME Stat LAB 08/02/18 18:52 Completed PT WITH INR Stat LAB 08/02/18 18:52 Completed TROPONIN I Stat LAB 08/02/18 18:52 Completed URINALYSIS C & S IF INDICATED Stat LAB 08/02/18 18:41 Completed URINE CULTURE Stat LAB 08/02/18 18:[address] ABDOMEN/PELVIS WO CONTRAST Stat RADS 08/02/18 18:14 Taken Vital Signs: Temp Pulse Resp BP Pulse Ox 08/02/18 17:48 98.1 F 70 24 154/80 H 93 L Departure - Departure Time of Disposition: 19:43 Disposition: PLACED OBSERVATION Discharge Problem: Weakness, Anemia, UTI (urinary tract infection) Condition: Good Pt referred to PMD for follow-up: Yes IPMP verified?: No Additional Instructions: Please call your Family Physician as soon as possible to schedule a follow-up appointment. Allergies/Adverse Reactions: Allergies No Known Allergies Allergy (Verified 09/20/16 04:14) Home Medications: Ambulatory Orders Escitalopram Oxalate 10 mg PO DAILY 02/03/14 Phenobarbital 32.4 gr PO DAILY 02/03/14 Docusate Sodium [Colace] 100 mg PO BID 06/08/14 Lorazepam [Ativan] 0.25 mg PO DAILY 09/23/14 Ferrous Sulfate 325 mg PO BID 12/31/14 Clopidogrel Bisulfate [Plavix] 75 mg PO DAILY #30 tablet 01/01/15 Amlodipine Besylate [Norvasc] 10 mg PO DAILY 08/29/15 Metoprolol Succinate [Toprol Xl] 100 mg PO DAILY 08/29/15 Acetaminophen 650 mg PO Q4H PRN 08/02/18 Ammonium Lactate [Lac-Hydrin Five] 226 gm TP BID 08/02/18 Calcium Carbonate/Vitamin D3 [[place] Calcium-Vit D Tab] 1 each PO BID 04/12 Clonidine 0.3 mg [Catapres TTS-3] 1 patch TD WEEKLY 08/02/18 Hydralazine HCl 100 mg PO QID 08/02/18 Hydrocodone Bit/Acetaminophen [[place] 5-325] 1 tab PO BID 08/02/18 Ipratropium/Albuterol Neb [Duoneb] 1 vial NEB BID PRN 08/02/18 Losartan Potassium 100 mg PO DAILY 08/02/18 Magnesium Citrate [Citrate of Magnesia] 15 ml PO DAILY 08/02/18 Phenytoin [Dilantin-125] 125 mg PO Q12H 08/02/18 Disposition Discussed With: Patient, Family
[2018-08-02] MEDS ORDERED: TYLENOL PO PRN (19:43)
[2018-08-02] MEDS ORDERED: DUONEB NEB PRN (19:43)
--- NOTE | 2018-08-02 19:51 | CT ---
EXAM: CT of the abdomen and pelvis without contrast. HISTORY: Pain. PROCEDURE: Contiguous axial CT images of the abdomen and pelvis without contrast with coronal and sa gittal reformats. FINDINGS: Comparison made with CT of 09/20/2016. There is motion artifact which limits the exam. Th e heart is enlarged. There is a small pericardial effusion measuring up to 0.6 cm. There is bibasil ar consolidation. The liver is normal in appearance. The gallbladder is surgically absent. The valiente creas, spleen and adrenal glands are normal in appearance. There are vascular calcifications in the kidneys. There is atrophy in the lower pole of the left kidney. There is increased aneurysmal dilat ation of the infrarenal abdominal aorta which measures 5.7 x 5.8 cm in diameter (previously 5.4 x 5.4 cm) with no evidence of aneurysm leak. There is an endograft stent in stable position extending in to the bilateral common iliac arteries. There are atherosclerotic calcifications in the major arteri es of the abdomen and pelvis. The appendix is normal in appearance. There is fecal stasis in the co abdelrahman. There is fecal impaction in the rectum which measures 7.1 x 8.3 cm on a single axial image. No free fluid or free air in the abdomen or pelvis. The bladder is adequately filled and normal in marva earance. The prostate gland is enlarged measuring 5.5 cm. There are degenerative changes in the spin e. Impression: Fecal impaction in the rectum as described. Interval increase in size of abdominal aortic aneurysm as described with no evidence of aneurysm leak . Endograft stent in stable position. Left renal atrophy. Enlarged prostate gland. Cholecystectomy. Minimal bibasilar atelectasis and/or pneumonia. Small pericardial effusion as described. Cardiomegaly.
[2018-08-02] MEDS ORDERED: DILANTIN PO SCH (20:00)
[2018-08-02] MEDS ORDERED: AMMONIUM LACTATE TP SCH (21:00)
[2018-08-02] MEDS ORDERED: NON-FORMULARY MEDICATION (Ferrous Sulfate [Ferrous Sulfate] 325 MG) PO SCH (21:00)
[2018-08-02] MEDS ORDERED: ROCEPHIN ONE (22:12)
[2018-08-02] MEDS ORDERED: FERROUS SULFATE ONE (22:12)
[2018-08-02] MEDS: NORCO 5-325 PO SCH (22:22)
[2018-08-02] MEDS: COLACE PO SCH (22:22)
[2018-08-02] MEDS: APRESOLINE PO SCH (22:23)
[2018-08-02] MEDS: ROCEPHIN 1 GM in SODIUM CHLORIDE 50 ML IV SCH (22:24)
[2018-08-02] MEDS: SODIUM CHLORIDE 1,000 ML IV SCH (22:46)
[2018-08-03 00:57] VITALS: BMI 26.6
--- NOTE | 2018-08-03 08:48 | PCM.PROG ---
Attending Provider: ATTENDING PROVIDER: Dr. LUIS ANGEL MICHAEL DATE OF SERVICE: 08/03/18 SUBJECTIVE: This 78 year old WHITE/ M was hospitalized 08/02/18 from the [facility] because abnormal labs and dehydration. The patient also has UTI. REVIEW OF SYSTEMS: CONSTITUTIONAL: No night sweats. No fatigue, malaise, lethargy. No fever or chills. The patient is unable to answer questions. HEENT: Eyes: No visual changes. No eye pain. No eye discharge. ENT: No runny nose. No epistaxis. No sinus pain. No odynophagia. No congestion. RESPIRATORY: No cough, no congestion. No hemoptysis. No shortness of breath. CARDIOVASCULAR: No angina symptoms. No CHF symptoms. No atypical chest pain for CAD. No palpitations. No orthopnea.. GASTROINTESTINAL: No abdominal pain. No nausea or vomiting. No diarrhea or constipation. No hematemesis. No hematochezia. GENITOURINARY: No urgency. No frequency. No dysuria. No hematuria. No obstructive symptoms. No discharge. No pain. No significant abnormal bleeding. MUSCULOSKELETAL: No musculoskeletal pain; no joint swelling. NEUROLOGICAL: Awake, alert, oriented to time, place and person. No headache. No neck pain. No syncope. No seizures. No dizziness. PSYCHIATRIC: Not anxious. No depression. No suicidal thoughts. No homicidal thoughts. SKIN: No rash. No lesions. No wounds. ENDOCRINE: No unexplained weight loss. No weight gain. HEMATOLOGIC/LYMPHATIC: No anemia. No purpura. No petechiae. No prolonged or excessive bleeding. No palpable lymph nodes. PHYSICAL EXAMINATION: GENERAL: The patient is awake, alert and oriented, lying in bed in no distress. VITAL SIGNS: Temperature 98.2 F, Pulse 66, Respiratory Rate 22, BP 162/83, Pulse Ox 93% HEENT: Head normocephalic, atraumatic. Eyes: Extraocular muscles are intact. Pupils are equal, round and reactive to light and accommodation. Ears: No lesions. Nose appeared normal. Throat: No exudate or erythema. NECK: Supple. No JVD, no carotid bruit. No lymphadenopathy or thyromegaly. LUNGS: Decreased breath sounds but clear to auscultation. Percussion note normal. Chest symmetrical. HEART: S1, S2, no S3. No murmurs. No cyanosis or clubbing. No ascites. Pulses: Dorsalis pedis and posterior tibial pulses +1 to +2 both sides. ABDOMEN: Soft. Non-tender. Bowel sounds active. No CVA tenderness. No mass felt. EXTREMITIES: No edema. Full range of motion of all extremities, equal. Right hemiplegia with contracture of right upper extremity. NEUROLOGIC: No focal deficit. Cranial nerves II through XII are grossly intact. No headache, no double vision or headache. SKIN: Warm and dry. Intact. Turgor-normal. LYMPHATIC: No palpable lymph nodes/no lymphedema. MUSCULOSKELETAL: Normal joints with no swelling. Muscle tone is normal. LAB REVIEW: 08/03/18 04:50 08/03/18 04:50 08/03/18 04:50: Sodium 141.9, Potassium 3.82, Chloride 108.1 H, Carbon Dioxide 24.4, Anion Gap 13.22, BUN 24.5 H, Creatinine 1.01, Estimated GFR (MDRD) 71.00, BUN/Creatinine Ratio 24.25, Glucose 117.8 H, Calcium 9.02, Total Bilirubin 0.63 , AST 22.4, ALT 13.7, Alkaline Phosphatase 99.6, Total Protein 6.64, Albumin 3.65, Globulin 2.99, Albumin/Globulin Ratio 1.22 08/03/18 04:50: WBC 9.41, RBC 3.74 L, Hgb 10.9 L, Hct 33.4 L D, MCV 89.3, MCH 29.1, MCHC 32.6, RDW Coeff of Jaime 13.7, Plt Count 171, Immature Gran % (Auto) 0.3, Neut % (Auto) 70.8, Lymph % (Auto) 18.0, [place] % (Auto) 8.3, Eos % (Auto) 2.4, Baso % (Auto) 0.2, Immature Gran # (Auto) 0.0, Neut # (Auto) 6.7, Lymph # ( Auto) 1.7, [place] # (Auto) 0.8, Eos # (Auto) 0.2, Baso # (Auto) 0.0 08/02/18 18:52: Sodium 141.1, Potassium 3.93, Chloride 104.8, Carbon Dioxide 27.3, Anion Gap 12.93, BUN 26.5 H, Creatinine 0.94, Estimated GFR (MDRD) 78.00, BUN/Creatinine Ratio 28.19, Glucose 102.9, Calcium 9.62, Total Bilirubin 0.63, AST 40.8, ALT 17.0, Alkaline Phosphatase 122.2 H, Total Creatine Kinase 33.7 L, Troponin I < 0.012, Total Protein 7.96, Albumin 4.42, Globulin 3.54, Albumin/ Globulin Ratio 1.24 08/02/18 18:52: PT 9.9, INR 0.99, APTT 27.1 08/02/18 18:52: WBC 11.91 H, RBC 4.39 L, Hgb 12.8 L, Hct 39.5 L, MCV 90.0, MCH 29.2, MCHC 32.4, RDW Coeff of Jaime 13.7, Plt Count 198, Immature Gran % (Auto) 0.3, Neut % (Auto) 78.8, Lymph % (Auto) 11.1, [place] % (Auto) 6.0, Eos % (Auto) 3.6, Baso % (Auto) 0.2, Immature Gran # (Auto) 0.0, Neut # (Auto) 9.4 H, Lymph # (Auto) 1.3, [place] # (Auto) 0.7, Eos # (Auto) 0.4, Baso # (Auto) 0.0 08/02/18 18:41: Urine Color Yellow, Urine Clarity Cloudy, Urine pH 8.0, Ur Specific [place] 1.020, Urine Protein 1+, Urine Glucose (UA) Negative, Urine Ketones Negative, Urine Blood Negative, Urine Nitrite Positive, Urine Bilirubin Negative, Urine Urobilinogen 0.2, Ur Leukocyte Esterase 1+, Urine Microscopic WBC 10-20, Ur Squamous Epith Cells Not present, Urine Bacteria 4+ ASSESSMENT: Please see below. 1. Dehydration 2. UTI 3. Dementia 4. Status post CVA with right hemiplegia 5. Hypertension 6. Anemia 7. Fecal impaction in rectum. PLAN: 1. Continue IV Rocephin 2. IV fluids 3. Blood pressure borderline, no room for any medication for hypertension. Watch blood pressure. Plan and coordination of the patient's care discussed in the presence of Store Assistant and nurse. SCRIBED BY: MARVIN GARZA Wardrobe Coordinator scribed while in presence of service performed by Dr. LUIS ANGEL MICHAEL on 08/03/18 ([id number])
[2018-08-03] MEDS ORDERED: NON-FORMULARY MEDICATION (Amlodipine Besylate [Norvasc] 10 MG) PO SCH (09:00)
[2018-08-03] MEDS ORDERED: CITRATE OF MAGNESIA PO SCH (09:00)
[2018-08-03] MEDS ORDERED: PHENOBARBITAL PO SCH (09:00)
[2018-08-03] MEDS ORDERED: NON-FORMULARY MEDICATION (Metoprolol Succinate [Toprol Xl] 100 MG) PO SCH (09:00)
[2018-08-03] MEDS: ROCEPHIN 1 GM in SODIUM CHLORIDE 50 ML IV SCH (09:44)
[2018-08-03] MEDS: AMMONIUM LACTATE TP SCH ×2 (09:45→21:13)
[2018-08-03] MEDS: CITRATE OF MAGNESIA PO SCH (09:45)
--- NOTE | 2018-08-03 09:45 | PN ---
DATE OF SERVICE: 08/02/18 SUBJECTIVE: The patient was seen and examined in his room, Room 115. The patient was sent from the [facility] because of weakness and change in the mental status with possibility of dehydration and UTI. The patient is unable to give any history. He has right hemiplegia with contracture of the right upper extremity and lower extremity. He has aphasia. REVIEW OF SYSTEMS: CONSTITUTIONAL: No night sweats. No fatigue, malaise, lethargy. No fever or chills. HEENT: Eyes: No visual changes. No eye pain. No eye discharge. ENT: No runny nose. No epistaxis. No sinus pain. No sore throat. No odynophagia. No congestion. RESPIRATORY: No cough, no congestion. No hemoptysis. No shortness of breath. CARDIOVASCULAR: No angina symptoms. No CHF symptoms. No atypical chest pain for CAD. No palpitations. No PND. No orthopnea. GASTROINTESTINAL: No abdominal pain. No nausea or vomiting. No diarrhea or constipation. No hematemesis. No hematochezia. GENITOURINARY: No urgency. No frequency. No dysuria. No hematuria. No obstructive symptoms. No discharge. No pain. No significant abnormal bleeding. MUSCULOSKELETAL: No musculoskeletal pain; no joint swelling. NEUROLOGICAL: No headache. No neck pain. No syncope. No seizures. No dizziness. PSYCHIATRIC: Not anxious. No depression. No suicidal thoughts. No homicidal thoughts. SKIN: No rash. No lesions. No wounds. ENDOCRINE: No unexplained weight loss. No weight gain. HEMATOLOGIC/LYMPHATIC: No anemia. No purpura. No petechiae. No prolonged or excessive bleeding. No palpable lymph nodes. PHYSICAL EXAMINATION: VITAL SIGNS: Temperature 98, pulse 70, respiratory rate 24, blood pressure 150/ 80 and pulse ox 93%. HEENT: Head normocephalic, atraumatic. Eyes: Extraocular muscles are intact. Pupils are equal, round and reactive to light and accommodation. Ears: No lesions. Nose appeared normal. Throat: No exudate or erythema. NECK: Supple. No JVD, no carotid bruit. No lymphadenopathy or thyromegaly. LUNGS: Decreased breath sounds but clear to auscultation. Percussion note normal. Chest symmetrical. HEART: S1, S2, no S3. No murmurs. No cyanosis or clubbing. No ascites. Pulses: Dorsalis pedis and posterior tibial pulses +1 to +2 bilaterally. ABDOMEN: Soft. Nontender. Bowel sounds active. No CVA tenderness. No mass felt. EXTREMITIES: No edema. Full range of motion of all extremities, equal. NEUROLOGIC: No focal deficit. Cranial nerves II through XII are grossly intact. No headache, no double vision or headache. SKIN: Dry. Intact. Turgor - normal. LYMPHATIC: No palpable lymph nodes/no lymphedema. MUSCULOSKELETAL: Normal joints with no swelling. Muscle tone is normal. LABS: Hgb 12.8, hct 39, WBC 11,900 normal differential, creatinine 0.9, BUN 26, potassium 3.9. ASSESSMENT: 1. Dehydration 2. Weakness 3. Change in the mental status from possibility of UTI 4. Status post CVA with right hemiparesis 5. Dementia 6. Aphagia 7. Right hemiplegia with contractures PLAN: 1. IV Rocephin 1 dose 2. IV fluids 3. Monitor CBC and CMP TIME SPENT: More than 30 minutes. Plan and coordination of the patient's care discussed in the presence of nurse. MARLY
[2018-08-03] MEDS: ATIVAN PO SCH (09:46)
[2018-08-03] MEDS: DILANTIN PO SCH ×2 (09:46→21:01)
[2018-08-03] MEDS: APRESOLINE PO SCH ×4 (09:47→21:01)
[2018-08-03] MEDS: PHENOBARBITAL PO SCH (09:47)
[2018-08-03] MEDS: PLAVIX PO SCH (09:47)
[2018-08-03] MEDS: LEXAPRO PO SCH (09:47)
[2018-08-03] MEDS: NORCO 5-325 PO SCH ×2 (09:47→21:01)
[2018-08-03] MEDS: COLACE PO SCH ×2 (09:47→21:01)
[2018-08-03] MEDS: NORVASC PO SCH (09:47)
[2018-08-03] MEDS: COZAAR PO SCH (09:48)
[2018-08-03] MEDS: FERROUS SULFATE PO SCH ×2 (09:48→21:01)
[2018-08-03] MEDS: TOPROL XL PO SCH (09:50)
[2018-08-03] MEDS: SODIUM CHLORIDE 1,000 ML IV SCH (12:15)
[2018-08-04] MEDS: SODIUM CHLORIDE 1,000 ML IV SCH ×2 (00:36→15:42)
[2018-08-04] MEDS ORDERED: CITRATE OF MAGNESIA PO STA (08:35)
[2018-08-04] MEDS: DILANTIN PO SCH ×2 (08:37→20:38)
[2018-08-04] MEDS: ATIVAN PO SCH (08:38)
[2018-08-04] MEDS: LEXAPRO PO SCH (08:38)
[2018-08-04] MEDS: TOPROL XL PO SCH (08:39)
[2018-08-04] MEDS: PLAVIX PO SCH (08:39)
[2018-08-04] MEDS: APRESOLINE PO SCH ×4 (08:39→20:37)
[2018-08-04] MEDS: FERROUS SULFATE PO SCH ×2 (08:39→20:37)
[2018-08-04] MEDS: NORVASC PO SCH (08:39)
[2018-08-04] MEDS: NORCO 5-325 PO SCH ×2 (08:40→20:37)
[2018-08-04] MEDS: PHENOBARBITAL PO SCH (08:40)
[2018-08-04] MEDS: ROCEPHIN 1 GM in SODIUM CHLORIDE 50 ML IV SCH (08:40)
[2018-08-04] MEDS: COZAAR PO SCH (08:40)
[2018-08-04] MEDS: COLACE PO SCH ×2 (08:40→20:37)
[2018-08-04] MEDS: CITRATE OF MAGNESIA PO SCH (08:41)
--- NOTE | 2018-08-04 09:07 | PCM.PROG ---
Attending Provider: ATTENDING PROVIDER: Dr. LUIS ANGEL MICHAEL This patient is seen with Alexus Yu, Nurse Practitioner. DATE OF SERVICE: 08/04/18 SUBJECTIVE: This 78 year old WHITE/ M was hospitalized 08/02/18. The patient is resting comfortably. His kidney function has significant improved. He has had no bowel movement and still has fecal impaction. REVIEW OF SYSTEMS: CONSTITUTIONAL: No night sweats. No fatigue, malaise, lethargy. No fever or chills. HEENT: Eyes: No visual changes. No eye pain. No eye discharge. ENT: No runny nose. No epistaxis. No sinus pain. No odynophagia. No congestion. RESPIRATORY: No cough, no congestion. No hemoptysis. No shortness of breath. CARDIOVASCULAR: No angina symptoms. No CHF symptoms. No atypical chest pain for CAD. No palpitations. No orthopnea.. GASTROINTESTINAL: No abdominal pain. No nausea or vomiting. No diarrhea or constipation. No hematemesis. No hematochezia. GENITOURINARY: No urgency. No frequency. No dysuria. No hematuria. No obstructive symptoms. No discharge. No pain. No significant abnormal bleeding. MUSCULOSKELETAL: No musculoskeletal pain; no joint swelling. Weakness. NEUROLOGICAL: Awake, alert, oriented to time, place and person. No headache. No neck pain. No syncope. No seizures. No dizziness. PSYCHIATRIC: Not anxious. No depression. No suicidal thoughts. No homicidal thoughts. SKIN: No rash. No lesions. No wounds. ENDOCRINE: No unexplained weight loss. No weight gain. HEMATOLOGIC/LYMPHATIC: No anemia. No purpura. No petechiae. No prolonged or excessive bleeding. No palpable lymph nodes. PHYSICAL EXAMINATION: GENERAL: The patient is awake, alert and oriented, lying in bed in no distress. VITAL SIGNS: Temperature 97.4 F, Pulse 92, Respiratory Rate 16, BP 145/79, Pulse Ox 96% HEENT: Head normocephalic, atraumatic. Eyes: Extraocular muscles are intact. Pupils are equal, round and reactive to light and accommodation. Ears: No lesions. Nose appeared normal. Throat: No exudate or erythema. NECK: Supple. No JVD, no carotid bruit. No lymphadenopathy or thyromegaly. LUNGS: Decreased breath sounds. Clear to auscultation. Percussion note normal. Chest symmetrical. HEART: S1, S2, no S3. No murmurs. No cyanosis or clubbing. No ascites. Pulses: Dorsalis pedis and posterior tibial pulses +1 to +2 both sides. ABDOMEN: Soft. Non-tender. Bowel sounds active. No CVA tenderness. No mass felt. EXTREMITIES: No edema. Full range of motion of all extremities, equal. NEUROLOGIC: No focal deficit. Cranial nerves II through XII are grossly intact. No headache, no double vision or headache. SKIN: Not dry. Intact. Turgor-normal. LYMPHATIC: No palpable lymph nodes/no lymphedema. MUSCULOSKELETAL: Normal joints with no swelling. Muscle tone is normal. LAB REVIEW: 08/04/18 05:40 08/04/18 05:40 08/04/18 05:40: Sodium 141.6, Potassium 3.59, Chloride 110.9 H, Carbon Dioxide 22.7, Anion Gap 11.59, BUN 18.2, Creatinine 0.96, Estimated GFR (MDRD) 76.00, BUN/Creatinine Ratio 18.95, Glucose 112.7 H, Calcium 8.26 L, Total Bilirubin 0.49, AST 18.8, ALT 12.9, Alkaline Phosphatase 93.3, Total Protein 6.45, Albumin 3.46 L, Globulin 2.99, Albumin/Globulin Ratio 1.15 08/04/18 05:40: WBC 6.74, RBC 3.67 L, Hgb 10.8 L, Hct 33.2 L, MCV 90.5, MCH 29.4 , MCHC 32.5, RDW Coeff of Jaime 13.6, Plt Count 154, Immature Gran % (Auto) 0.3, Neut % (Auto) 63.9, Lymph % (Auto) 18.8, [place] % (Auto) 10.7 H, Eos % (Auto) 5.9 , Baso % (Auto) 0.4, Immature Gran # (Auto) 0.0, Neut # (Auto) 4.3, Lymph # ( Auto) 1.3, [place] # (Auto) 0.7, Eos # (Auto) 0.4, Baso # (Auto) 0.0 ASSESSMENT: Please see below. 1. UTI, culture pending. 2. Generalized weakness. 3. Dehydration, improved. 4. Constipation, fecal impaction PLAN: 1. Decreased IV fluids to 50ml 2. One bottle of magnesium citrate 3. Fleet enema, may repeat if needed Plan and coordination of the patient's care discussed in the presence of Premium Auditor and nurse. SCRIBED BY: MARVIN GARZA Roller Skater scribed while in presence of service performed by Dr. Michael/Alexus Yu, SHARONA on 08/04/18 ([id number])
--- NOTE | 2018-08-04 11:28 | DI ---
EXAM: CHEST FRONTAL VIEW HISTORY: Atelectasis or pneumonia on CT. COMPARISON: 09/03/2015 radiography and 08/02/2018 CT FINDINGS: Heart size is mildly prominent. Lungs are relatively lucent and which can be consistent w ith a degree of pulmonary emphysema. Correlate clinically. Subtle basilar densities probably repres ent the consolidations seen on recent CT and appear to persist without noticeable improvement or wors ening. This again could indicate pneumonia or atelectasis. No pleural fluid. IMPRESSION: 1. Persistent basilar densities possibly relating to mild atelectasis or pneumonia. Correlate clini laney.
[2018-08-04] MEDS: AMMONIUM LACTATE TP SCH ×2 (11:29→20:35)
[2018-08-04] MEDS: MINOXIDIL PO SCH ×2 (12:12→20:37)
--- NOTE | 2018-08-05 07:51 | HP ---
DATE OF SERVICE: 08/04/18 HISTORY OF PRESENT ILLNESS: This is a 78-year-old white male who is a resident of [facility]. On Thursday I received a copy of his CBC and CMP. His BUN was 77 and creatinine 3.59 which is acutely abnormal for him. [facility] called the [facility] and instructed him to be sent to the hospital. PAST MEDICAL HISTORY: Dyslipidemia Hypertension TIA CVA History of seizures Left-sided hemiparesis Depression History of aortic aneurysm Aphasia Peripheral arterial disease Dementia Anemia BPH History of basal cell carcinoma Generalized osteoarthritis PAST SURGICAL HISTORY: Basal cell carcinoma, removed in 1988 Left lung lobectomy 1988 due to fungal infection Cholecystectomy Aortoiliac stent graft REVIEW OF SYSTEMS: CONSTITUTIONAL: Generalized weakness, confusion. No night sweats. No malaise, lethargy. No fever or chills. HEENT: Eyes: No visual changes. No eye pain. No eye discharge. ENT: No runny nose. No epistaxis. No sinus pain. No sore throat. No odynophagia. No ear pain. No congestion. RESPIRATORY: No cough, no congestion. No hemoptysis. No shortness of breath. CARDIOVASCULAR: No angina symptoms. No CHF symptoms. No atypical chest pain for CAD. No palpitations. No PND. No orthopnea. GASTROINTESTINAL: No abdominal pain. No nausea or vomiting. No diarrhea or constipation. No hematemesis. No hematochezia. GENITOURINARY: No urgency. No frequency. No dysuria. No hematuria. No obstructive symptoms. No discharge. No pain. No significant abnormal bleeding. MUSCULOSKELETAL: No musculoskeletal pain. No joint swelling. No arthritis. NEUROLOGICAL: No headache. No neck pain. No syncope. No seizures. No dizziness. PSYCHIATRIC: Not anxious. No depression. No suicidal thoughts. No homicidal thoughts. SKIN: No rash. No lesions. No wounds. ENDOCRINE: No unexplained weight loss. No weight gain. HEMATOLOGIC/LYMPHATIC: No anemia. No purpura. No petechiae. No prolonged or excessive bleeding. No palpable lymph nodes. PERSONAL/FAMILY/SOCIAL HISTORY: He is but [facility] due to his weakness. hemiparesis. He is a past former smoker. No alcohol or ilicit drug use. MEDICATIONS: (HOME) Phenobarbitol 32.4 gm p.o. daily Escitalopram 10 mg p.o. daily Colace 100 mg p.o. b.i.d. Ativan 0.25 mg p.o. daily Ferrous Sulfate 325 mg p.o. b.i.d. Plavix 75 mg p.o. daily Norvasc 10 mg p.o. daily Toprol XL 100 mg p.o. daily Citrate of Magnesia 15 mL p.o. daily Losartan 100 mg p.o. daily Lac-Hydrin Five 226 gm TP b.i.d. Duoneb one vial neb b.i.d. p.r.n. Clonidine 0.3 mg one patch TD weekly Acetaminophen 650 mg p.o. q.4h p.r.n. Calcium/Vitamin D3 one each p.o. b.i.d. Hydrocodone/Acetaminophen one tab p.o. b.i.d. Dilantin 125 mg/5 mL 125 mg p.o. q.12h Hydralazine 100 mg p.o. q.i.d. ALLERGIES: NKDA PHYSICAL EXAMINATION: VITAL SIGNS: Temperature 98.1, heart rate 70, respirations 24, BP 154/80, pulse ox 93% on room air. HEENT: Head normocephalic, atraumatic. Eyes: Extraocular muscles are intact. Pupils are equal, round and reactive to light and accommodation. Ears: No lesions. Nose appeared normal. Throat: No exudate or erythema. NECK: Supple. No JVD, no carotid bruit. No lymphadenopathy or thyromegaly. LUNGS: Diminished breath sounds bilaterally. Clear to auscultation. Percussion note normal. Chest symmetrical. HEART: S1, S2, no S3. No murmurs. No cyanosis or clubbing. No ascites. Pulses: Dorsalis pedis and posterior tibial pulses +1 to +2 bilaterally. ABDOMEN: Soft. Nontender. Bowel sounds active. No CVA tenderness. No mass felt. EXTREMITIES: Trace bilateral leg edema, which is chronic. Full range of motion of all extremities, equal. NEUROLOGIC: Alert and oriented to person however not place or time. No focal deficit. Cranial nerves II through XII are grossly intact. No headache, no double vision or headache. SKIN: War and dry. Intact. Turgor - normal. LYMPHATIC: No palpable lymph nodes/no lymphedema. MUSCULOSKELETAL: Normal joints with no swelling. Muscle tone is normal. White count 11.91, hemoglobin 12.8, hematocrit 39.5, platelets 198. Sodium 141, potassium 3.9, BUN 26.5, creatinine 0.94, glucose 102. UA showed 1+ protein, 1+ leuks, positive nitrites and 4+ bacteria. ASSESSMENT: 1. URINARY TRACT INFECTION 2. DEHYDRATION 3. GENERALIZED WEAKNESS 4. HISTORY OF CVA WITH LEFT HEMIPARESIS 5. HYPERTENSION 6. DEMENTIA 7. FECAL IMPACTION PER CT SCAN PLAN: 1. We will admit. 2. Routine telemetry orders. 3. CBC, CMP daily. 4. Start on Rocephin 1 gm IV daily. 5. Urine for culture and sensitivity. 6. IV fluids NS at 75 cc/hr. 7. Chest x-ray. 8. Low sodium diet. 9. Fleet's enema. 10. Will follow him closely. TIME SPENT: More than 70 minutes. ABELARDOD
[2018-08-05] MEDS: FERROUS SULFATE PO SCH ×2 (08:30→22:33)
[2018-08-05] MEDS: APRESOLINE PO SCH ×4 (08:30→22:33)
[2018-08-05] MEDS: DILANTIN PO SCH ×2 (08:30→22:33)
[2018-08-05] MEDS: COZAAR PO SCH (08:31)
[2018-08-05] MEDS: NORCO 5-325 PO SCH ×2 (08:31→22:33)
[2018-08-05] MEDS: TOPROL XL PO SCH (08:31)
[2018-08-05] MEDS: LEXAPRO PO SCH (08:31)
[2018-08-05] MEDS: NORVASC PO SCH (08:31)
[2018-08-05] MEDS: COLACE PO SCH ×2 (08:31→22:33)
[2018-08-05] MEDS: PLAVIX PO SCH (08:31)
[2018-08-05] MEDS: PHENOBARBITAL PO SCH (08:32)
[2018-08-05] MEDS: ATIVAN PO SCH (08:33)
[2018-08-05] MEDS: CITRATE OF MAGNESIA PO SCH (08:40)
[2018-08-05] MEDS: LEVAQUIN 500 MG in PREMIX 100 ML D5W 1 BAG IV SCH (08:41)
[2018-08-05] MEDS: AMMONIUM LACTATE TP SCH ×2 (08:42→22:32)
[2018-08-05] MEDS: MINOXIDIL PO SCH ×2 (08:43→22:33)
--- NOTE | 2018-08-05 08:55 | PCM.PROG ---
Attending Provider: ATTENDING PROVIDER: Dr. LUIS ANGEL MICHAEL This patient is seen with Alexus Yu, Nurse Practitioner. DATE OF SERVICE: 08/05/18 SUBJECTIVE: This 78 year old WHITE/ M was hospitalized 08/02/18. The patient is resting comfortably. He did not eat very much yesterday. Urine culture shows not sensitive to Rocephin. We will change to IV Levaquin. The patient did have large bowel movement yesterday. REVIEW OF SYSTEMS: CONSTITUTIONAL: No night sweats. No fatigue, malaise, lethargy. No fever or chills. HEENT: Eyes: No visual changes. No eye pain. No eye discharge. ENT: No runny nose. No epistaxis. No sinus pain. No odynophagia. No congestion. RESPIRATORY: No cough, no congestion. No hemoptysis. No shortness of breath. CARDIOVASCULAR: No angina symptoms. No CHF symptoms. No atypical chest pain for CAD. No palpitations. No orthopnea.. GASTROINTESTINAL: No abdominal pain. No nausea or vomiting. Constipation. No hematemesis. No hematochezia. Decreased appetite. GENITOURINARY: No urgency. No frequency. No dysuria. No hematuria. No obstructive symptoms. No discharge. No pain. No significant abnormal bleeding. MUSCULOSKELETAL: No musculoskeletal pain; no joint swelling. Weakness. NEUROLOGICAL: Awake, alert, oriented to time, place and person. No headache. No neck pain. No syncope. No seizures. No dizziness. PSYCHIATRIC: Not anxious. No depression. No suicidal thoughts. No homicidal thoughts. SKIN: No rash. No lesions. No wounds. ENDOCRINE: No unexplained weight loss. No weight gain. HEMATOLOGIC/LYMPHATIC: No anemia. No purpura. No petechiae. No prolonged or excessive bleeding. No palpable lymph nodes. PHYSICAL EXAMINATION: GENERAL: The patient is awake, alert and oriented, lying in bed in no distress. VITAL SIGNS: Temperature 98.0 F, Pulse 67, Respiratory Rate 19, BP 158/70, Pulse Ox 93% HEENT: Head normocephalic, atraumatic. Eyes: Extraocular muscles are intact. Pupils are equal, round and reactive to light and accommodation. Ears: No lesions. Nose appeared normal. Throat: No exudate or erythema. NECK: Supple. No JVD, no carotid bruit. No lymphadenopathy or thyromegaly. LUNGS: diminished breath sounds. Clear to auscultation. Percussion note normal. Chest symmetrical. HEART: S1, S2, no S3. Grade I murmur. No cyanosis or clubbing. No ascites. Pulses: Dorsalis pedis and posterior tibial pulses +1 to +2 both sides. ABDOMEN: Soft. Non-tender. Bowel sounds active. No CVA tenderness. No mass felt. EXTREMITIES: No edema. Full range of motion of all extremities, equal. Left sided hemiparesis NEUROLOGIC: No focal deficit. Cranial nerves II through XII are grossly intact. No headache, no double vision or headache. SKIN: Not dry. Intact. Turgor-normal. LYMPHATIC: No palpable lymph nodes/no lymphedema. MUSCULOSKELETAL: Normal joints with no swelling. Muscle tone is normal. LAB REVIEW: 08/05/18 05:00 08/05/18 05:00 08/05/18 05:00: Sodium 142.7, Potassium 3.53, Chloride 111.6 H, Carbon Dioxide 21.1 L, Anion Gap 13.53, BUN 16.9, Creatinine 1.00, Estimated GFR (MDRD) 72.00, BUN/Creatinine Ratio 16.90, Glucose 97.3, Calcium 8.28 L, Total Bilirubin 0.39, AST 21.3, ALT 12.0, Alkaline Phosphatase 92.6, Total Protein 6.33, Albumin 3.41 L, Globulin 2.92, Albumin/Globulin Ratio 1.16 08/05/18 05:00: WBC 6.15, RBC 3.56 L, Hgb 10.3 L, Hct 32.2 L, MCV 90.4, MCH 28.9 , MCHC 32.0, RDW Coeff of Jaime 13.6, Plt Count 156, Immature Gran % (Auto) 0.5, Neut % (Auto) 59.9, Lymph % (Auto) 22.8, [place] % (Auto) 8.9, Eos % (Auto) 7.2 H, Baso % (Auto) 0.7, Immature Gran # (Auto) 0.0, Neut # (Auto) 3.7, Lymph # (Auto ) 1.4, [place] # (Auto) 0.6, Eos # (Auto) 0.4, Baso # (Auto) 0.0 08/04/18 09:50: Phenytoin 5.96 L ASSESSMENT: Please see below. 1. UTI, Enterobacter 2. Dehydration, resolved 3. CVA with left sided hemiparesis 4. Hypertension, improving. PLAN: 1. Minoxidil 5mg twice a day 2. Discontinue Rocephin 3. Levaquin 500mg twice a day 4. Discontinue IV fluids. Plan and coordination of the patient's care discussed in the presence of Quality Assurance Coach and nurse. SCRIBED BY: Clemente LACY scribed while in presence of service performed by Dr. Michael/Alexus Yu APRN on 08/05/18 ([id number])
[2018-08-05] MEDS: SODIUM CHLORIDE 1,000 ML IV SCH (13:42)
[2018-08-06 06:07] VITALS: BP 144/74; TEMP 97.8
--- NOTE | 2018-08-06 08:42 | PCM.PROG ---
Attending Provider: ATTENDING PROVIDER: Dr. LUIS ANGEL MICHAEL This patient is seen with Alexus Yu, Nurse Practitioner. DATE OF SERVICE: 08/06/18 SUBJECTIVE: This 78 year old WHITE/ M was hospitalized 08/02/18. The patient is resting comfortably. No fever and eating better with pureed food and thickened liquids. Speech to see him to [facility]. The patient is stable for discharge. REVIEW OF SYSTEMS: CONSTITUTIONAL: No night sweats. No fatigue, malaise, lethargy. No fever or chills. HEENT: Eyes: No visual changes. No eye pain. No eye discharge. ENT: No runny nose. No epistaxis. No sinus pain. No odynophagia. No congestion. RESPIRATORY: No cough, no congestion. No hemoptysis. No shortness of breath. CARDIOVASCULAR: No angina symptoms. No CHF symptoms. No atypical chest pain for CAD. No palpitations. No orthopnea.. GASTROINTESTINAL: No abdominal pain. No nausea or vomiting. No diarrhea or constipation. No hematemesis. No hematochezia. GENITOURINARY: No urgency. No frequency. No dysuria. No hematuria. No obstructive symptoms. No discharge. No pain. No significant abnormal bleeding. MUSCULOSKELETAL: No musculoskeletal pain; no joint swelling. Weakness. NEUROLOGICAL: Awake, alert, oriented to time, place and person. No headache. No neck pain. No syncope. No seizures. No dizziness. PSYCHIATRIC: Not anxious. No depression. No suicidal thoughts. No homicidal thoughts. SKIN: No rash. No lesions. No wounds. ENDOCRINE: No unexplained weight loss. No weight gain. HEMATOLOGIC/LYMPHATIC: No anemia. No purpura. No petechiae. No prolonged or excessive bleeding. No palpable lymph nodes. PHYSICAL EXAMINATION: GENERAL: The patient is awake, alert and oriented, lying in bed in no distress. VITAL SIGNS: Temperature 97.8 F, Pulse 63, Respiratory Rate 16, BP 144/74, Pulse Ox 95% HEENT: Head normocephalic, atraumatic. Eyes: Extraocular muscles are intact. Pupils are equal, round and reactive to light and accommodation. Ears: No lesions. Nose appeared normal. Throat: No exudate or erythema. NECK: Supple. No JVD, no carotid bruit. No lymphadenopathy or thyromegaly. LUNGS: Diminished breath sounds. Clear to auscultation. Percussion note normal. Chest symmetrical. HEART: S1, S2, no S3. No murmurs. No cyanosis or clubbing. No ascites. Pulses: Dorsalis pedis and posterior tibial pulses +1 to +2 both sides. ABDOMEN: Soft. Non-tender. Bowel sounds active. No CVA tenderness. No mass felt. EXTREMITIES: No edema. Full range of motion of all extremities, equal. NEUROLOGIC: No focal deficit. Cranial nerves II through XII are grossly intact. No headache, no double vision or headache. SKIN: Not dry. Intact. Turgor-normal. LYMPHATIC: No palpable lymph nodes/no lymphedema. MUSCULOSKELETAL: Normal joints with no swelling. Muscle tone is normal. LAB REVIEW: 08/06/18 05:35 08/06/18 05:35 08/06/18 05:35: Sodium 142.6, Potassium 3.69, Chloride 111.7 H, Carbon Dioxide 23.1, Anion Gap 11.49, BUN 21.1 H, Creatinine 1.36 H, Estimated GFR (MDRD) 51.00 , BUN/Creatinine Ratio 15.51, Glucose 115.2 H, Calcium 8.52, Total Bilirubin 0.32, AST 25.6, ALT 14.2, Alkaline Phosphatase 93.5, Total Protein 6.40, Albumin 3.46 L, Globulin 2.94, Albumin/Globulin Ratio 1.17 08/06/18 05:35: WBC 6.53, RBC 3.70 L, Hgb 10.7 L, Hct 33.4 L, MCV 90.3, MCH 28.9 , MCHC 32.0, RDW Coeff of Jaime 13.5, Plt Count 173, Immature Gran % (Auto) 0.3, Neut % (Auto) 58.2, Lymph % (Auto) 23.6, [place] % (Auto) 9.6, Eos % (Auto) 8.0 H, Baso % (Auto) 0.3, Immature Gran # (Auto) 0.0, Neut # (Auto) 3.8, Lymph # (Auto ) 1.5, [place] # (Auto) 0.6, Eos # (Auto) 0.5, Baso # (Auto) 0.0 08/04/18 09:50: Phenobarbital 6 ASSESSMENT: Please see below. 1. UTI, Enterobacter 2. Dehydration, resolved 3. CVA with left sided hemiparesis 4. Hypertension, improving. PLAN: 1. Discharge to [facility] 2. Speech therapy to see at [facility] 3. Continue Minoxidil 4. Levaquin 500mg PO daily times 5 days 5. Probiotics times two weeks. Plan and coordination of the patient's care discussed in the presence of Checkout Supervisor and nurse. SCRIBED BY: MARVIN GARZA Fishing Tool Operator scribed while in presence of service performed by Dr. Michael/Alexus Yu APRN on 08/06/18 ([id number])
[2018-08-06] MEDS: FERROUS SULFATE PO SCH (08:58)
[2018-08-06] MEDS: LEVAQUIN 500 MG in PREMIX 100 ML D5W 1 BAG IV SCH (08:58)
[2018-08-06] MEDS: MINOXIDIL PO SCH (08:58)
[2018-08-06] MEDS: COZAAR PO SCH (08:58)
[2018-08-06] MEDS: DILANTIN PO SCH (08:58)
[2018-08-06] MEDS: NORVASC PO SCH (08:59)
[2018-08-06] MEDS: NORCO 5-325 PO SCH (08:59)
[2018-08-06] MEDS: APRESOLINE PO SCH (08:59)
[2018-08-06] MEDS: LEXAPRO PO SCH (08:59)
[2018-08-06] MEDS: TOPROL XL PO SCH (08:59)
[2018-08-06] MEDS: PHENOBARBITAL PO SCH (08:59)
[2018-08-06] MEDS: ATIVAN PO SCH (08:59)
[2018-08-06] MEDS: COLACE PO SCH (09:00)
[2018-08-06] MEDS: AMMONIUM LACTATE TP SCH (09:00)
[2018-08-06] MEDS: PLAVIX PO SCH (09:00)
[2018-08-06] MEDS: CITRATE OF MAGNESIA PO SCH (09:16)
--- NOTE | 2018-08-06 09:45 | RS.SLPCNOT ---
Speech Case Note Date of Note: 08/06/18 Title: Swallow consult Note: WIRELINE OPERATOR was called by RN yesterday this date. Reports of pt choking on mechanical soft diet texture at lunch meal. RN had to suction pt to remove solids. Pt was at risk for aspiration, and the WIRELINE OPERATOR was contacted for safety. The WIRELINE OPERATOR provided verbal instruction to downgrade to puree diet texture, supervise with meals, and encourage small bites with a liquid wash. The WIRELINE OPERATOR consulted with nursing this date to follow-up pts status. Pt is planned for d/c , so the WIRELINE OPERATOR did not complete an evaluation. The RN requested a coke for pleasure. The WIRELINE OPERATOR presented three trials via controlled straw drinks. The pt did not have overt s/s of aspiration. The WIRELINE OPERATOR recommends supervised coke sips via straw if no overt s/s of aspiraiton are noted.
[2018-08-06] MEDS ORDERED: DULCOLAX RC STA (11:09)
--- NOTE | 2018-08-06 11:12 | CM.DICTOOL ---
ADMISSION: 08/02/18 19:50 DISCHARGE: AUGUST 06, 2018 DATE OF SERVICE: 08/06/18 FINAL DIAGNOSIS DEHYDRATION UTI, ENTEROBACTER CLOACAE COMPLEX FECAL IMPACTION AAA (5.7X5.8 CM) ANEMIA HYPERTENSION HISTORY OF CVA APHASIA RIGHT HEMIPLEGIA HIGH LIPIDS HISTORY OF SEIZURES LAST VITALS Temp Pulse Resp BP Pulse Ox 97.8 F 63 16 144/74 H 95 08/06/18 06:00 08/06/18 06:00 08/06/18 06:00 08/06/18 06:00 08/06/18 06:00 TAKE THESE MEDICATIONS AT HOME Acetaminophen (Tylenol) 650 mg PO Q4H PRN PRN Reason: Analgesia Hydrocodone Bitart/Acetaminophen ([place] 5-325) 1 tab PO BID [facility] Last Admin: 08/06/18 08:59 Dose: 1 tab Albuterol/Ipratropium (Duoneb) 1 vial NEB BID PRN PRN Reason: Wheezing Amlodipine Besylate (Norvasc) 10 mg PO DAILY [facility] Last Admin: 08/06/18 08:59 Dose: 10 mg Clonidine HCl (Catapres-Tts 3) 1 patch TD WEEKLY [facility] Clopidogrel Bisulfate (Plavix) 75 mg PO DAILY [facility] Last Admin: 08/06/18 09:00 Dose: 75 mg Docusate Sodium (Colace) 100 mg PO BID [facility] Last Admin: 08/06/18 09:00 Dose: 100 mg Escitalopram Oxalate (Lexapro) 10 mg PO DAILY [facility] Last Admin: 08/06/18 08:59 Dose: 10 mg Ferrous Sulfate (Ferrous Sulfate) 324 mg PO BID [facility] Last Admin: 08/06/18 08:58 Dose: 324 mg Hydralazine HCl (Apresoline) 100 mg PO QID [facility] Last Admin: 08/06/18 08:59 Dose: 100 mg Levofloxacin 500 mg PO DAILY FOR 5 DAYS Last Admin: 500 mg IV 08/06/2018 Lorazepam (Ativan) 0.25 mg PO DAILY [facility] Last Admin: 08/06/18 08:59 Dose: 0.25 mg Losartan Potassium (Cozaar) 100 mg PO DAILY [facility] Last Admin: 08/06/18 08:58 Dose: 100 mg Magnesium Citrate (Citrate Of Magnesia) 1 oz PO DAILY [facility] Last Admin: 08/06/18 09:16 Dose: 1 oz Metoprolol Succinate (Toprol Xl) 100 mg PO DAILY [facility] Last Admin: 08/06/18 08:59 Dose: 100 mg Minoxidil (Minoxidil) 5 mg PO BID [facility] Last Admin: 08/06/18 08:58 Dose: 5 mg Non-Formulary Medication (Ammonium Lactate [Lac-Hydrin Five]) 226 gm TP BID [facility] Last Admin: 08/06/18 09:00 Dose: Not Given Phenobarbital (Phenobarbital) 32.4 mg PO DAILY [facility] Last Admin: 08/06/18 08:59 Dose: 32.4 mg Phenytoin Sodium (Dilantin) 125 mg PO Q12HR [facility] Last Admin: 08/06/18 08:58 Dose: 125 mg Florastor 250 mg DAIILY for 14 days Last Admin: ALLERGIES No Known Allergies Allergy (Verified 09/20/16 04:14) DISCONTINUED MEDICATIONS Magnesia Citrate 0.5 ounce PO Daily NEW PRESCRIPTIONS: MAGNESIA CITRATE 30 ML PO DAILY LEVAQUIN 500 MG PO DAILY FOR 5 DAYS FLORASTOR 250 MG PO DAILY FOR 14 DAYS MINOXIDIL 5 MG BID FOR HYPERTENSION SMOKING: NOT APPLICABLE DISEASE SPECIFIC EDUCATION: NOT APPLICABLE; PATIENT IS COOPERATIVE, BUT RESIDES AT [facility] LAB REVIEW: 08/06/18 05:35 08/06/18 05:35 08/06/18 05:35: Sodium 142.6, Potassium 3.69, Chloride 111.7 H, Carbon Dioxide 23.1, Anion Gap 11.49, BUN 21.1 H, Creatinine 1.36 H, Estimated GFR (MDRD) 51.00 , BUN/Creatinine Ratio 15.51, Glucose 115.2 H, Calcium 8.52, Total Bilirubin 0.32, AST 25.6, ALT 14.2, Alkaline Phosphatase 93.5, Total Protein 6.40, Albumin 3.46 L, Globulin 2.94, Albumin/Globulin Ratio 1.17 08/06/18 05:35: WBC 6.53, RBC 3.70 L, Hgb 10.7 L, Hct 33.4 L, MCV 90.3, MCH 28.9 , MCHC 32.0, RDW Coeff of Jaime 13.5, Plt Count 173, Immature Gran % (Auto) 0.3, Neut % (Auto) 58.2, Lymph % (Auto) 23.6, [place] % (Auto) 9.6, Eos % (Auto) 8.0 H, Baso % (Auto) 0.3, Immature Gran # (Auto) 0.0, Neut # (Auto) 3.8, Lymph # (Auto ) 1.5, [place] # (Auto) 0.6, Eos # (Auto) 0.5, Baso # (Auto) 0.0 PLAN: DISCHARGE TO [facility] DIET: REGULAR, MECHANICAL SOFT WITH PUREED MEATS LIQUIDS: NECTAR THICK DIETITIAN TO SEE FOR OPTIMAL NUTRITIONAL INTAKE ACTIVITY: UP TO CHAIR DAILY AND PRN TURN EVERY 2 HOURS AND PRN INCONTINENT CARE PRN DECUBITUS PRECAUTIONS SPEECH THERAPY EVALUATION DUE TO CHOKING EPISODE AND DIET CHANGE VITAL SIGNS DAILY FOR 1 WEEK AND THEN WEEKLY CBC, CMP IN 1 WEEK AND THEN MONTHLY LIPIDS, TSH, A1C EVERY 6 MONTHS CODE STATUS: DNR PATIENT TO BE SEEN IN 7-10 DAYS ON [facility] ROUNDS BY ACACIA LANGSTON APRN MR. BATES IS ALERT TO PERSON. HE HAS APHASIA RELATED TO AN OLD CVA. HE MOANS, GROANS AND GESTURES WITH THE LEFT HAND IN RESPONSE TO QUESTIONS. HE IS MAINLY BEDRIDDEN, BUT CAN TRANSFER WITH ASSIST OF 2 STAFF MEMBERS TO THE CHAIR. HE DOES NOT AMBULATE DUE TO WEAKNESS OF THE LOWER EXTREMITIES. HE IS INCONTINENT AT TIMES, BUT WILL ALSO USE THE URINAL. HE IS INCONTINENT OF STOOL. 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 AREAS OF BRUISING ARE NOTED TO THE UPPER EXTREMITIES. NO DECUBITUS ULCERS NOTED. LUIS ANGEL MICHAEL MD ACACIA LANGSTON APRN
[2018-08-06] MEDS ORDERED: DULCOLAX RC ONE (11:25)
--- NOTE | 2018-08-06 14:45 | PN ---
DATE OF SERVICE: 08/06/18 SUBJECTIVE: The patient was seen and examined with the nurse practitioner. The patient's condition is improved. Dehydration and UTI seems to have resolved. Fecal impaction has resolved. Fecal impaction is resolved. He is more alert and trying to joke, unable to make out what he says. Skin turgor is better. PHYSICAL EXAMINATION: HEENT: Head normocephalic, atraumatic. Eyes: Extraocular muscles are intact. Pupils are equal, round and reactive to light and accommodation. Ears: No lesions. Nose appeared normal. Throat: No exudate or erythema. NECK: Supple. No JVD, no carotid bruit. No lymphadenopathy or thyromegaly. LUNGS: Decreased breath sounds but clear to auscultation. Percussion note normal. Chest symmetrical. HEART: S1, S2, no S3. No murmurs. No cyanosis or clubbing. No ascites. Pulses: Dorsalis pedis and posterior tibial pulses +1 to +2 bilaterally. ABDOMEN: Soft. Nontender. Bowel sounds active. No CVA tenderness. No mass felt. EXTREMITIES: No edema. Full range of motion of all extremities, equal. NEUROLOGIC: No focal deficit. Cranial nerves II through XII are grossly intact. No headache, no double vision or headache. SKIN: Not dry. Intact. Turgor - normal. LYMPHATIC: No palpable lymph nodes/no lymphedema. MUSCULOSKELETAL: Normal joints with no swelling. Muscle tone is normal. CONDITION: Stable TIME SPENT: More than 30 minutes. Plan and coordination of the patient's care discussed in the presence of nurse. MARLY
--- NOTE | 2018-08-06 14:47 | PN ---
CODING FOR BILLIN08/02/18 LEVEL 5 - ADMISSION DAY 08/03/18 INTERMEDIATE 08/04/18 INTERMEDIATE 08/05/18 INTERMEDIATE 08/06/18 DISCHARGE MTDD
[2018-08-09] MEDS ORDERED: CATAPRES-TTS 3 TD SCH (09:00)
--- NOTE | 2018-08-09 09:13 | DS ---
DATE OF SERVICE: 08/06/18 FINAL DIAGNOSIS: DEHYDRATION UTI, ENTEROBACTER CLOACAE COMPLEX FECAL IMPACTION AAA (5.7X5.8 CM) ANEMIA HYPERTENSION HISTORY OF CVA APHASIA RIGHT HEMIPLEGIA HIGH LIPIDS HISTORY OF SEIZURES LAST VITALS: Temp Pulse Resp BP Pulse Ox 97.8 F 63 16 144/74 H 95 08/06/18 06:00 08/06/18 06:00 08/06/18 06:00 08/06/18 06:00 08/06/18 06:00 DISCHARGE INSTRUCTIONS: DISCHARGE TO [facility]. INCONTINENT CARE PRN. DECUBITUS PRECAUTIONS. SPEECH THERAPY EVALUATION DUE TO CHOKING EPISODE AND DIET CHANGE. VITAL SIGNS DAILY FOR 1 WEEK AND THEN WEEKLY. CBC, CMP IN 1 WEEK AND THEN MONTHLY. LIPIDS, TSH, A1C EVERY 6 MONTHS. CODE STATUS: DNR. PATIENT TO BE SEEN IN 7-10 DAYS ON LONGTERM ROUNDS BY ACACIA LANGSTON APRN. TAKE THESE MEDICATIONS AT HOME: Acetaminophen (Tylenol) 650 mg PO Q4H PRN Hydrocodone Bitart/Acetaminophen ([place] 5-325) 1 tab PO BID [facility] Albuterol/Ipratropium (Duoneb) 1 vial NEB BID PRN Amlodipine Besylate (Norvasc) 10 mg PO DAILY [facility] Clonidine HCl (Catapres-Tts 3) 1 patch TD WEEKLY [facility] Clopidogrel Bisulfate (Plavix) 75 mg PO DAILY [facility] Docusate Sodium (Colace) 100 mg PO BID [facility] Escitalopram Oxalate (Lexapro) 10 mg PO DAILY [facility] Ferrous Sulfate (Ferrous Sulfate) 324 mg PO BID [facility] Hydralazine HCl (Apresoline) 100 mg PO QID [facility] Levofloxacin 500 mg PO DAILY FOR 5 DAYS Lorazepam (Ativan) 0.25 mg PO DAILY [facility] Losartan Potassium (Cozaar) 100 mg PO DAILY [facility] Magnesium Citrate (Citrate Of Magnesia) 1 oz PO DAILY [facility] Metoprolol Succinate (Toprol Xl) 100 mg PO DAILY [facility] Minoxidil (Minoxidil) 5 mg PO BID [facility] Non-Formulary Medication (Ammonium Lactate [Lac-Hydrin Five]) 226 gm TP BID [facility] Phenobarbital (Phenobarbital) 32.4 mg PO DAILY [facility] Phenytoin Sodium (Dilantin) 125 mg PO Q12HR [facility] Florastor 250 mg DAIILY for 14 days ALLERGIES: No Known Allergies Allergy (Verified 09/20/16 04:14) DISCONTINUED MEDICATIONS: Magnesia Citrate 0.5 ounce PO Daily NEW PRESCRIPTIONS: MAGNESIA CITRATE 30 ML PO DAILY LEVAQUIN 500 MG PO DAILY FOR 5 DAYS FLORASTOR 250 MG PO DAILY FOR 14 DAYS MINOXIDIL 5 MG BID FOR HYPERTENSION SMOKING: NOT APPLICABLE DISEASE SPECIFIC EDUCATION: NOT APPLICABLE; PATIENT IS COOPERATIVE, BUT RESIDES AT [facility] DIET: REGULAR, MECHANICAL SOFT WITH PUREED MEATS LIQUIDS: YESSICA XIONG DIETITIAN TO SEE FOR OPTIMAL NUTRITIONAL INTAKE ACTIVITY: UP TO CHAIR DAILY AND PRN TURN EVERY 2 HOURS AND PRN HOSPITAL COURSE: THIS IS A 78 YEAR OLD WHITE MALE WHO IS A RESIDENT OF [facility] WHO WAS BROUGHT TO THE EMERGENCY ROOM INITIALLY BECAUSE WE THOUGHT HIS BUN AT THE LONGTERM WAS THOUGHT TO BE 65 WITH CREATININE 3.5. UPON ARRIVAL AT THE EMERGENCY ROOM FOR AN ADDITIONAL CMP KIDNEY FUNCTION WAS ONLY SLIGHTLY ELEVATED WITH BUN OF 27 AND CREATININE OF 1.5. U/A IN THE EMERGENCY ROOM WAS ABNORMAL WAS 4+ BACTERIA. CT OF THE ABDOMEN ALSO SHOWED THAT HE HAD A FECAL IMPACTION. HE HAS COMPLICATED PAST MEDICAL HISTORY WITH HISTORY OF CVA WITH SEVERE RIGHT HEMIPLEGIA WITH HISTORY OF SEIZURES. WE ADMITTED HIM AND PLACED HIM ON IV FLUIDS FOR MILD DEHYDRATION WELL STARTED HIM ON ROCEPHIN 1 GRAM IV DAILY FOR HIS URINARY TRACT INFECTION. KIDNEY FUNCTION IMPROVED AFTER ABOUT 36 HOURS OF IV FLUIDS. AFTER 48 HOURS WE RECEIVED THE URINE CULTURE WHICH WAS POSITIVE FOR ENTEROBACTER WITH INTERMEDIATE TO ROCEPHIN SO WE SWITCHED HIM TO IV LEVAQUIN. HE HAS NOW RECEIVED THREE DOSES OF LEVAQUIN 500MG IV DAILY FOR THE PAST THREE DAYS. HE DID HAVE AN EPISODE OF CHOKING. HE IS GOING TO SPEECH THERAPY ONCE RETURNING TO THE LONGTERM. WE PLACED HIM ON MECHANICAL SOFT WITH PUREED MEATS DIET HERE AT THE HOSPITAL. CHEST X-RAY WAS NORMAL. HIS KIDNEY FUNCTIONS STEADILY IMPROVED. HIS APPETITE HAS IMPROVED. HE DID HAVE SOME ELEVATED BLOOD PRESSURE INITIALLY ON ADMISSION BLOOD PRESSURE SYSTOLIC INTO THE 160'S AND 170'S. HE HAS PRETTY MUCH MAXED OUT ON MEDICATION. WE DID ADD MINOXIDIL 2.5MG TWICE A DAY INITIALLY BROUGHT HIS BLOOD PRESSURES DOWN INTO THE 150'S. WE THEN INCREASED TO 5MG PO TWICE A DAY AND HAS HAD A SYSTOLIC IN THE 140 'S SO THIS IS ACCEPTABLE GIVEN HIS PAST HISTORY OF LABILE HYPERTENSION WHICH IS HARD TO CONTROL. WE WILL SEND HIM BACK TO THE LONGTERM IN STABLE CONDITION WITH LEVAQUIN 500MG PO DAILY FOR THE NEXT 5 DAYS. HE IS TO HAVE A REPEAT CBC AND CMP IN ONE WEEK. AGAIN SPEECH THERAPY WILL SEE HIM AT THE LONGTERM. HE DID HAVE A LARGE BOWEL MOVEMENT YESTERDAY AFTER DRINKING MAGNESIUM CITRATE AND HAD TWO FLEETS ENEMAS. IMPACTION HAS RESOLVED. TIME SPENT: More than 60 minutes. MTDD
== END 2018-08-06 11:59 | DRG 690 ==
LOC: ED 17:48 → OBSVTOIN 19:49 → INTOOBSV 19:49 → UNDOADMOB 19:49 → MEDSURG B 19:49 → INTOOBSV 19:50 → MEDSURG B 19:50 → OBSVTOIN 19:50 → UNDOADMOB 19:50
PROVIDERS: ADMIT Internal Medicine; ATTEND Internal Medicine
DX: N39.0 Urinary tract infection, site not specified (principal); G81.91 Hemiplegia, unspecified affecting right dominant side; D64.9 Anemia, unspecified; E86.0 Dehydration; K56.41 Fecal impaction; I71.4 Abdominal aortic aneurysm, without rupture; I10 Essential (primary) hypertension; F03.90 Unspecified dementia, unspecified severity, without behavioral disturbance, psychotic disturbance, mood disturbance, and anxiety; R10.9 Unspecified abdominal pain; R53.1 Weakness; R13.0 Aphagia; Z72.0 Tobacco use; Z86.73 Personal history of transient ischemic attack (TIA), and cerebral infarction without residual deficits
CPT/HCPCS: 36415; 80053; 80184; 80185; 81001; 82550; 84484; 85025; 85610; 85730; 87086; 87186; 93005; 93010; 99284; 99285

== ENCOUNTER 2018-09-03 12:33 | Outpatient (CLI) ==
[2018-09-03 12:53] VITALS: BMI 28.7
== END 2018-09-03 12:40 | disposition critical access hospital (66) ==
LOC: AMBL 12:33
PROVIDERS: ATTEND Internal Medicine
DX: R79.89 Other specified abnormal findings of blood chemistry (principal)

== ENCOUNTER 2018-09-03 12:47 | Emergency (ER) | payer OTHER ==
[2018-09-03 12:53] VITALS: BP 112/46; TEMP 97; BMI 28.7
--- NOTE | 2018-09-03 15:21 | CT ---
EXAM: CT of the chest without contrast History: Cough. Comparison: CT abdomen pelvis 09/03/2018, chest radiograph 08/04/2018, chest CT 06/07/2014 Technique: Multiplanar CT images through the thorax were obtained without the administration of IV c ontrast Findings: Heart size is upper limits of normal. Trace pericardial fluid. 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 Coronary calcifications. No pathologically enlarged thoraci c lymph nodes. Calcified granulomas again seen. The thorax. Right greater than left bibasilar lung consolidation. Emphysema. No pneumothorax. No pleural fluid. For details in the upper abdomen, please see dedicated CT abdomen pelvis done on the same day. No ac robert osseous abnormalities. Diffuse idiopathic skeletal hyperostosis of the thoracic spine versus ank ylosing spondylitis. Impression: 1. Bibasilar pneumonia. 2. Chronic obstructive pulmonary disease
--- NOTE | 2018-09-03 15:22 | CT ---
EXAM: CT of the abdomen pelvis without contrast History: Cough, abdominal pain. Comparison: CT abdomen pelvis 08/02/2018 Technique: Multiplanar CT images through the abdomen pelvis were obtained without the administration of IV contrast Findings: Bibasilar lung infiltrates. No acute osseous abnormalities. Bifurcating abdominal aortic stent graft. Aneurysm sac measures 5.2 cm decreased compared to the david or study previously measuring 5.8 cm. No hydronephrosis. Status post cholecystectomy. No focal live r or splenic lesions are identified within limitations of a noncontrast study. No daniel peripancreat ic inflammation. Adrenal glands are unremarkable. No bowel obstruction. No free air and no ascites . Enlarged prostate abutting the base of the bladder. No perirectal inflammation. Scattered coloni c stool. Impression: No acute intra-abdominal or pelvic process.
--- NOTE | 2018-09-03 16:08 | ED.PDOC ---
General ED Provider: Dr. MAGDALENA COELHO Chief Complaint: Abnormal Labs Stated Complaint: out pt anemia Time Seen by Physician: 13:00 Mode of Arrival: Ambulance Information Source: EMT Exam Limitations: No limitations Primary Care Provider: LUIS ANGEL MICHAEL Nursing and Triage Documentation Reviewed and Agree: Yes Does patient meet sepsis criteria?: No System Inflammatory Response Syndrome: Not Applicable Sepsis Protocol: For patient's 13 years and over: Temp is 96.8 and below OR 101 and greater Pulse >90 BPM Resp >20/minute Acutely Altered Mental Status Are patient's symptoms suggestive of a new infection, such as: -Pneumonia -Skin, Soft Tissue -Endocarditis -UTI -Bone, Joint Infection -Implantable Device -Acute Abdominal Infection -Wound Infection -Meningitis -Blood Stream Catheter Infection -Unknown Miscellaneous Complaint Exam - Complex/Multi-System Complaint/Exam Onset/Duration: today Symptoms Are: Resolved Initial Severity: Mild Current Severity: None Associated Signs and Symptoms: Denies: Decreased responsiveness, Confusion, Agitation, Dizziness, Weakness, Syncope, Headache, Short of air, Cough, Wheezing , Hemoptysis, Chest pain, Palpitations, Edema, Nausea, Vomiting, Diarrhea, Abdominal pain, Back pain, Dysuria, Hematemesis, Melena, Decreased oral intake, Fever, Diaphoresis, Immunocompromised, Anticoagulation Therapy, Recent medication changes, Indwelling medical lead, Prior MRSA, Prior VRE, Recent trauma, Remote trauma Recent Echo/LV Function: No Respiratory Distress: None JVD Present: No Tachypnea Present: No Stridor Present: No Abdominal Findings: Present: Normal findings Glascow Coma Scale (see protocol): 15 Meningeal Signs Positive: Yes Focal Weakness: Present: None Focal Sensory Loss: Present: None Gait: Normal Gag Reflex Present: No Babinski Sign: Negative Right, Negative Left Joint Swelling Present: No In-Dwelling Device Present: No Differential Diagnosis: Metabolic Abnormality Quality Indicators for Cardiac Chest Pain: EKG in 10min. Quality Indicators for AMI: EKG in 10min. Quality Indicator For Non-Traumatic Chest Pain/Syncope: EKG Performed Review of Systems - Review Of Systems Constitutional: Reports: No symptoms Eyes: Reports: No symptoms Ears, Nose, Mouth, Throat: Reports: No symptoms Respiratory: Reports: Cough Cardiac: Reports: No symptoms GI: Reports: Abdominal pain : Reports: No symptoms Musculoskeletal: Reports: No symptoms Skin: Reports: No symptoms Neurological: Reports: No symptoms Endocrine: Reports: No symptoms Hematologic/Lymphatic: Reports: No symptoms All Other Systems: Reviewed and Negative Past Medical History - Past Medical History Previously Healthy: Yes Endocrine: Reports: Dyslipidemia Cardiovascular: Reports: Hypertension Respiratory: Reports: None Hematological: Reports: None Gastrointestinal: Reports: None Genitourinary: Reports: None Neuro/Psych: Reports: TIA, CVA, Seizure, Depression Musculoskeletal: Reports: None Cancer: Reports: Other (skin cancer,stomach cancer) Other Pertinent Past Medical History: 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 - Surgical History General Surgical History: Reports: Cholecystectomy, Other (AAA, left lobectomy( fungal)) - Family History Family History: Reports: Unknown - Social History Smoking Status: Current every day smoker, Smoker current status unknown Hx Substance Use: No Alcohol Screening: None Physical Exam - Physical Exam Appearance: Well-appearing, No pain distress, Well-nourished Eyes: TUAN, EOMI, Conjunctiva clear ENT: Ears normal, Nose normal, Oropharynx normal Respiratory: Airway patent, Breath sounds clear, Breath sounds equal, Respirations nonlabored Cardiovascular: RRR, Pulses normal, No rub, No murmur GI/: Soft, Nontender, No masses, Bowel sounds normal, No Organomegaly Musculoskeletal: Normal strength, ROM intact, No edema, No calf tenderness Skin: Warm, Dry, Normal color Neurological: Sensation intact, Motor intact, Reflexes intact, Cranial nerves intact, Alert, Oriented Psychiatric: Affect appropriate, Mood appropriate Interpretation - Radiology Interpretation Radiology Interpretation By: Radiologist Exam Interpreted: CT Scan (abdomen, pelvis basilar pneumpnia) Physician Notification - Case Discussed Physician Notified: pmd Time of Notification: 16:08 Admit To: Inpatient Critical Care Note - Critical Care Note Total Time (mins): 0 Course - Course Hematology/Chemistry: 09/03/18 13:34 09/03/18 13:34 Orders, Labs, Meds: Lab Review 09/03/18 09/03/18 09/03/18 13:34 13:34 13:34 WBC 5.32 RBC 3.78 L Hgb 10.9 L Hct 34.6 L MCV 91.5 MCH 28.8 MCHC 31.5 L RDW Coeff of Jaime 13.8 Plt Count 164 Immature Gran % (Auto) 0.4 Neut % (Auto) 56.9 Lymph % (Auto) 22.2 Sutton % (Auto) 8.8 Eos % (Auto) 11.1 H Baso % (Auto) 0.6 Immature Gran # (Auto) 0.0 Neut # (Auto) 3.0 Lymph # (Auto) 1.2 Sutton # (Auto) 0.5 Eos # (Auto) 0.6 Baso # (Auto) 0.0 PT 9.7 INR 0.97 APTT 27.6 Sodium 139.6 Potassium 3.95 Chloride 104.3 Carbon Dioxide 26.6 Anion Gap 12.65 BUN 26.1 H Creatinine 1.43 H Estimated GFR (MDRD) 48.00 BUN/Creatinine Ratio 18.25 Glucose 99.6 Calcium 8.76 Total Bilirubin 0.50 AST 20.3 ALT 11.5 Alkaline Phosphatase 87.5 Total Creatine Kinase 47.8 L Troponin I < 0.012 Total Protein 6.49 Albumin 4.08 Globulin 2.41 Albumin/Globulin Ratio 1.69 Blood Type Antibody Screen Crossmatch ([facility]) 09/03/18 09/03/18 13:34 13:45 WBC RBC Hgb Hct MCV MCH MCHC RDW Coeff of Jaime Plt Count Immature Gran % (Auto) Neut % (Auto) Lymph % (Auto) Sutton % (Auto) Eos % (Auto) Baso % (Auto) Immature Gran # (Auto) Neut # (Auto) Lymph # (Auto) Sutton # (Auto) Eos # (Auto) Baso # (Auto) PT INR APTT Sodium Potassium Chloride Carbon Dioxide Anion Gap BUN Creatinine Estimated GFR (MDRD) BUN/Creatinine Ratio Glucose Calcium Total Bilirubin AST ALT Alkaline Phosphatase Total Creatine Kinase Troponin I Total Protein Albumin Globulin Albumin/Globulin Ratio Blood Type O POSITIVE O POSITIVE Antibody Screen Negative Crossmatch ([facility]) See Detail Orders Category Date Time Status EKG-(ED ONLY) Stat CARDIO 09/03/18 13:09 Completed ORDER H&H 1HR POST TRANSFUSION ONCE CARE 09/03/18 13:33 Active PRBC LEUKOREDUCED ONCE CARE 09/03/18 13:33 Active ED IV/MEDIPORT/POWERPORT .ONCE EMERGENCY 09/03/18 13:09 Active CBC W/ AUTO DIFF Stat LAB 09/03/18 13:34 Completed COMPREHENSIVE METABOLIC PANEL Stat LAB 09/03/18 13:34 Completed CREATINE KINASE Stat LAB 09/03/18 13:34 Completed PACKED CELLS Routine LAB 09/03/18 13:45 Results PARTIAL THROMBOPLASTIN TIME Stat LAB 09/03/18 13:34 Completed PT WITH INR Stat LAB 09/03/18 13:34 Completed TROPONIN I Stat LAB 09/03/18 13:34 Completed TYPE AND SCREEN Routine LAB 09/03/18 13:45 Results UA [URINALYSIS C & S IF INDICATED] Stat LAB 09/03/18 13:11 Uncollected 0.9 % Sodium Chloride [Saline Flush] MEDS 09/03/18 13:09 Active 1 syr IVF PRN PRN CT ABDOMEN/PELVIS WO CONTRAST Stat RADS 09/03/18 13:[address] CHEST W/O CONTRAST Stat RADS 09/03/18 13:11 Completed Medications Generic Name Dose Route Start Last Admin Trade Name Freq PRN Reason Stop Dose Admin Sodium Chloride 1 syr 09/03/18 13:09 Saline Flush IVF PRN PRN To flush IV Vital Signs: Temp Pulse Resp BP Pulse Ox 09/03/18 12:47 97.0 F L 74 20 112/46 L 97 Departure - Departure Time of Disposition: 16:08 Disposition: HOME SELF-CARE Discharge Problem: Renal insufficiency, Pneumonia Anemia Qualifiers: Anemia type: unspecified type Qualified Code(s): D64.9 - Anemia, unspecified Instructions: Anemia (ED), Pneumonitis (ED) Condition: Good Pt referred to PMD for follow-up: No IPMP verified?: Yes Additional Instructions: Please call your Family Physician as soon as possible to schedule a follow-up appointment. Allergies/Adverse Reactions: Allergies No Known Allergies Allergy (Verified 09/03/18 12:54) Home Medications: Ambulatory Orders Escitalopram Oxalate 10 mg PO DAILY 02/03/14 Phenobarbital 32.4 gr PO DAILY 02/03/14 Docusate Sodium [Colace] 100 mg PO BID 06/08/14 Lorazepam [Ativan] 0.25 mg PO DAILY 09/23/14 Ferrous Sulfate 325 mg PO BID 12/31/14 Clopidogrel Bisulfate [Plavix] 75 mg PO DAILY #30 tablet 01/01/15 Amlodipine Besylate [Norvasc] 10 mg PO DAILY 08/29/15 Metoprolol Succinate [Toprol Xl] 100 mg PO DAILY 08/29/15 Acetaminophen 650 mg PO Q4H PRN 08/02/18 Ammonium Lactate [Lac-Hydrin Five] 226 gm TP BID 08/02/18 Clonidine 0.3 mg [Catapres TTS-3] 1 patch TD TH 08/02/18 Hydralazine HCl 100 mg PO QID 08/02/18 Hydrocodone Bit/Acetaminophen [Ideal 5-325] 1 tab PO BID 08/02/18 Ipratropium/Albuterol Neb [Duoneb] 1 vial NEB BID PRN 08/02/18 Losartan Potassium 100 mg PO DAILY 08/02/18 Phenytoin [Dilantin-125] 125 mg PO Q12H 08/02/18 Minoxidil 5 mg PO BID #60 tablet 08/06/18 Magnesium Citrate [Citrate of Magnesia] 30 ml PO DAILY 09/03/18
== END 2018-09-03 18:08 | disposition home or self-care (01) ==
LOC: ED 12:47
DX: J18.9 Pneumonia, unspecified organism (principal); N28.9 Disorder of kidney and ureter, unspecified; D64.9 Anemia, unspecified; E78.5 Hyperlipidemia, unspecified; I10 Essential (primary) hypertension; Z86.73 Personal history of transient ischemic attack (TIA), and cerebral infarction without residual deficits; F17.210 Nicotine dependence, cigarettes, uncomplicated; Z79.899 Other long term (current) drug therapy
CPT/HCPCS: 36415; 80053; 82550; 84484; 85025; 85610; 85730; 86850; 86900; 86922; 93005; 93010; 99283

== ENCOUNTER 2018-09-03 18:16 | Outpatient (CLI) ==
[2018-09-03 12:53] VITALS: BMI 28.7
== END 2018-09-03 18:23 ==
LOC: AMBL 18:16
PROVIDERS: ATTEND Internal Medicine
DX: J64 Unspecified pneumoconiosis (principal); R79.89 Other specified abnormal findings of blood chemistry

== ENCOUNTER 2018-09-29 09:39 | Outpatient (CLI) ==
--- NOTE | 2018-09-29 10:24 | CT ---
EXAM: CT of the maxillofacial region without contrast History: Facial trauma and right jaw pain. Comparison: Head CT 03/25/2016 Technique: Multiplanar CT images through the maxillofacial region were obtained without the administ ration of IV contrast Findings: Orbits are intact. 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 Surrounding soft tissues demonstrate no acute findings. Bilateral maxillary sinuses are clear. There is complete opacification of the right sphenoid sinus. Left sphenoid sinuses clear. Ethmoid air cells and frontal sinuses are clear. Nasal septum is carmella d to the left. Bilateral ostiomeatal units are not occluded. Mastoid air cells are clear. Atherosc lerotic vascular calcifications. No acute fracture or dislocation. Degenerative changes within the visualized upper cervical spine. Impression: 1. No acute fracture. 2. Right sphenoid sinusitis
== END 2018-09-29 09:40 | disposition home or self-care (01) ==
LOC: RAD 09:39
PROVIDERS: ATTEND Internal Medicine
DX: R56.9 Unspecified convulsions (principal); R29.6 Repeated falls; Z91.81 History of falling; I69.954 Hemiplegia and hemiparesis following unspecified cerebrovascular disease affecting left non-dominant side; R13.19 Other dysphagia; I10 Essential (primary) hypertension; M06.9 Rheumatoid arthritis, unspecified